=== PATIENT | female | born 1930 | race Caucasian/White ===

== ENCOUNTER 2018-11-02 19:34 | Emergency (ER) | payer MEDICARE, OTHER ==
[2018-11-02] MEDS ORDERED: Adacel (T-DAP) 0.5 ML SYRINGE ONE (20:04)
== END 2018-11-02 20:21 | disposition home or self-care (01) ==
LOC: ERS 19:34
DX: S81.811A Laceration without foreign body, right lower leg, initial encounter (principal); W22.8XXA Striking against or struck by other objects, initial encounter; Y92.002 Bathroom of unspecified non-institutional (private) residence as the place of occurrence of the external cause
CPT/HCPCS: 12005; 90471; 90715

== ENCOUNTER 2019-02-07 07:12 | Observation (INO) | payer MEDICARE, OTHER ==
[2019-02-07] MEDS ORDERED: Ondansetron PF 4 MG/2 ML Vial ONE (07:17)
[2019-02-07 07:53] LABS: #Basophils 0.1 thou/uL (0.0-0.2); #Eosinphils 0.2 thou/uL (0.0-0.7); #Monocytes 0.4 thou/uL (0.11-0.59); #Neutrophils 2.2 thou/uL (1.40-6.50); %Eosinophils 3.2 % (0.0-10.0); %Lymphocytes 41.3 % (21.0-51.0); %Monocytes 8.3 % (0.0-10.0); %Neutrophils 46.1 % (42.0-75.0); Hemoglobin 13.1 g/dL (12.0-16.0); Mean Corpuscular HGB CONC 33.2 g/dL (32.0-36.0); Mean Corpuscular Hemoglobin 32.4 pg (27.0-31.0); Mean Corpuscular Volume 97.8 fL (78.0-98.0); Mean Platelet Volume 7.7 fL (7.4-10.4); Platelet Count 225 thou/uL (130-400); RBC Distribution Width 11.1 % (11.5-14.5); Red Blood Cell (RBC) Count 4.03 mill/uL (4.20-5.40); White Blood Cell (WBC) Count 4.8 thou/uL (4.8-10.8)
--- NOTE | 2019-02-07 08:02 | CT ---
FCT brain noncontrast: HISTORY: 88-year-old female with altered mental status FINDINGS: There is no evidence of acute intra-axial or extra-axial hemorrhage. No mass effect, midline shift, o r extra-axial fluid collection. No evidence of obstructive hydrocephalus. Calvarium is intact. Age-ap propriate involutional changes and mild chronic ischemic white matter changes of the brain. IMPRESSION: No acute intracranial findings.
[2019-02-07] MEDS ORDERED: Nitroglycerin 2% Ointment 1 INCH/1 GM Packet ONE (08:16)
[2019-02-07 08:17] LABS: ALT (SGPT) Less than 7 U/L (8-55); AST (SGOT) 14 U/L (5-34); Albumin 4.2 g/dL (3.4-4.8); Alkaline Phosphatase 98 U/L (40-150); Anion Gap 13 mmol/L (10-20); BUN (Urea Nitrogen) 23 mg/dL (9.8-20.1); Bilirubin, Total 0.4 mg/dL (0.2-1.2); CK (CPK) 55 U/L (29-168); Calc. Creatinine Clearance 0 mL/min (70-130); Calcium 9.8 mg/dL (7.8-10.44); Carbon Dioxide 26 mmol/L (23-31); Chloride 101 mmol/L (98-107); Estimated GFR-MDRD 44; Globulin 2.6 g/dL (2.4-3.5); Glucose 88 mg/dL (83-110); Potassium 3.7 mmol/L (3.5-5.1); Protein, Total 6.8 g/dL (6.0-8.3); Sodium 136 mmol/L (136-145)
[2019-02-07 08:25] LABS: Bilirubin Negative (Negative); Blood, Urine Negative (Negative); Clarity CLEAR (Clear); Glucose, Urine (Dipstick) Negative (Negative); Leukocyte Negative (Negative); Nitrite Negative (Negative); Protein, Urine (Dipstick) Negative (Neg-Trace); Specific Gravity, Urine 1.006 (1.002-1.036); Urobilinogen 0.2 mg/dL (0.2-1.0)
[2019-02-07 11:07] LABS: Troponin I 0.014 ng/mL (< 0.028)
[2019-02-07] MEDS ORDERED: Acetaminophen 500 MG TAB ONE (11:53)
[2019-02-07] MEDS ORDERED: Diazepam 5 MG TAB PO PRN (12:14)
[2019-02-07] MEDS ORDERED: tiZANidine HCl 4 MG TAB PO PRN (12:14)
--- NOTE | 2019-02-07 12:57 | CT ---
CT LEFT HIP WITHOUT CONTRAST: HISTORY: Hip pain after a fall. COMPARISON: None. FINDINGS: There is moderate diverticular disease of the sigmoid colon. No free fluid in the pelvis. No pelvic sidewall hematoma. Phleboliths in the pelvis. Visualized portions of the SI joints unremarkable. Visualized portion of the left ilium and ischium are intact. Moderate enthesopathic changes of the left hamstring tendons . Mild capsular calcifications of the left hip. There is advanced degenerative narrowing with subco rtical cyst formation. There are osteophyte formations of the left femoral head/neck junction. No intratrochanteric fracture. No femoral neck or head fracture. No obturator ring fracture. There is no fascial delamination. IMPRESSION: Advanced degenerative changes with near-complete cartilage loss anterior superior acetabulum and femo ral head with subsequent capsular calcifications and osteophyte formation. No acute fracture. POS: C
[2019-02-07 14:19] LABS: Troponin I 0.014 ng/mL (< 0.028)
--- NOTE | 2019-02-07 16:34 | MRI ---
[facility] brain noncontrast: 02/07/2019 HISTORY: 88-year-old female with dizziness, status post syncope and fall resulting in head trauma. FINDINGS: No acute intra-axial or extra-axial hemorrhage. No mass effect, midline shift, restricted diffusion, extra-axial fluid collection, or obstructive hydrocephalus. Mild chronic ischemic white matter change s of the richards radiata and centrum semiovale. Diffuse age-appropriate brain parenchymal volume loss. IMPRESSION: 1. Involutional changes and chronic ischemic white matter changes, typical for age. 2. Otherwise negative.
--- NOTE | 2019-02-07 18:13 | HP ---
CHIEF COMPLAINT: Dizziness, fall. HISTORY OF PRESENT ILLNESS: The patient is an 88-year-old female with past medical history of disk disease and hypertension, who presents to the hospital after a fall and dizziness. The patient stated that she woke up twice last night to go adjust her thermostat, however, when she woke up, the second time she got out very slowly, felt the room spin and fell hitting her nose. The patient initially stated that she did not syncopized, however, could not then recall what really happened after things happened so quickly. The patient stated that she normally has issues with her eyes and she has been seeing Ophthalmology, sometimes she sees double vision. Also, she has been feeling fullness of her right ear on multiple antibiotics which has not really helped her symptoms. The patient stated that for the past maybe a month she was put on antihypertensives, which made her very dizzy, at this time she stopped taking her antihypertensives. She did notify her PCP about this. The patient does keep a record of her blood pressure and her blood pressure according to her has been very stable. However, the son also stated that she has had multiple episodes where she will get dizzy and fall. However, this episode the patient described very clearly that the room was spinning and felt that the ground was pulled underneath her feet and at that time she fell and hit her nose. PAST MEDICAL HISTORY: She has a history of disk disease and hypertension. PAST SURGICAL HISTORY: She has had bilateral knee replacement. She has back surgery. She has had left arm hardware. She has had appendectomy, hysterectomy, and cholecystectomy. ALLERGIES: SHE HAS NO KNOWN DRUG ALLERGIES. MEDICATION: Her medication list was taken from the chart, son was asked to bring the current medication list. She is on a diuretic, amlodipine, diazepam. She is on hydrocodone and tizanidine. SOCIAL HISTORY: She does drink about 2 to 5 glasses of wine on a daily basis. She is a former smoker, currently does not smoke. She is a full code. FAMILY HISTORY: Mother had Alzheimer's. Father had no significant medical history. REVIEW OF SYSTEMS: All negative except for the ones mentioned above in the HPI. PHYSICAL EXAMINATION: VITAL SIGNS: Her temperature was 98.8, initially when she came into the hospital she was very hypertensive. Her blood pressure was 210/87. She was 100% on room air, respirations were 20. GENERAL: She is awake,alert, and oriented x3, does not appear in any distress. HEENT: Normocephalic and atraumatic. lymphadenopathy noted. Pupils are equal and reactive to light. CV: S1 and S2 present. No murmurs, rubs, or gallops. LUNGS: Clear to auscultation. No rhonchi or wheezes noted. ABDOMEN: Soft and nontender. Bowel sounds are present x2. EXTREMITIES: She does have pain on her left hip upon palpation, however, no focal deficits noted. Her cerebellum test was intact. [id number] was intact. Her [id number] was little altered given her double vision. SKIN: She does have some minor cuts and bruises around. LABORATORY RESULTS: As of the following; WBCs of 4.8, hemoglobin of 13.1, hematocrit of 39.4, platelets of 225. Chemistry; sodium of 132, potassium of 3.7, BUN of 22, creatinine of 1.17. Troponin x2 were negative. LFTs were normal. Her urine was clear. She did have a brain CT, which did not show any acute abnormalities. ASSESSMENT AND PLAN: The patient is a very pleasant 88-year-old female, who presents to the hospital for dizziness and fall. 1. Dizziness, most likely secondary to vertigo. However, given the patient's age and some risk factors, and she was found to have hypertension when she came into the hospital. I will go ahead and do a MRI brain to rule out any cerebellum stroke. I will also do an echocardiogram since she is unsure if she really passed out. It is also negative, she should be able to be discharged home once the tests are done. 2. History of hypertension. The patient states at home her blood pressure is well controlled. I have asked her son to bring a list of her home medications. We will continue to monitor and we will continue her home medications. However, in the ER she was found to be systolics in the 210s. She may need some adjustment with her blood pressure medications. 3. Left hip pain. The patient states that she fell in August of 2018, had x-rays done which were okay. However, the patient continues to have pain on her left hip area. I will go ahead and order a CT noncontrast of her left hip to rule out any fractures. However, the patient states that she is able to walk on it, however, her pain never got improved and she has also been getting some physical therapy. 4. Deep venous prophylaxis. We will put the patient on SCDs or Lovenox. Job ID: [id number]
[2019-02-07] MEDS: HYDROcodone/Acetaminophen 10/325 mg Tablet PO PRN (20:52)
[2019-02-07 23:18] VITALS: BMI 25.6
[2019-02-08] MEDS: HYDROcodone/Acetaminophen 10/325 mg Tablet PO PRN (03:22)
[2019-02-08] MEDS: hydrALAZINE 20 MG/ML VIAL SLOW IVP PRN (03:57)
[2019-02-08 05:46] LABS: #Eosinphils 0.1 thou/uL (0.0-0.7); #Lymphocytes 1.3 thou/uL (1.20-3.40); #Monocytes 0.5 thou/uL (0.11-0.59); %Basophils 0.8 % (0.0-1.0); %Eosinophils 1.8 % (0.0-10.0); %Lymphocytes 25.9 % (21.0-51.0); %Monocytes 10.8 % (0.0-10.0); %Neutrophils 60.6 % (42.0-75.0); Mean Corpuscular Hemoglobin 32.7 pg (27.0-31.0); Mean Corpuscular Volume 99.1 fL (78.0-98.0); Mean Platelet Volume 8.2 fL (7.4-10.4); Platelet Count 212 thou/uL (130-400); RBC Distribution Width 11.1 % (11.5-14.5); Red Blood Cell (RBC) Count 3.68 mill/uL (4.20-5.40)
[2019-02-08 06:08] LABS: Anion Gap 12 mmol/L (10-20); BUN (Urea Nitrogen) 20 mg/dL (9.8-20.1); Calc. Creatinine Clearance 38 mL/min (70-130); Calcium 9.5 mg/dL (7.8-10.44); Carbon Dioxide 27 mmol/L (23-31); Chloride 102 mmol/L (98-107); Estimated GFR-MDRD 46; Glucose 95 mg/dL (83-110); Potassium 3.6 mmol/L (3.5-5.1); Sodium 137 mmol/L (136-145)
[2019-02-08] MEDS ORDERED: Metoprolol Tartrate 25 MG TAB PO SCH (09:00)
[2019-02-08] MEDS ORDERED: Prevnar 13-Val Conj/PF 0.5 ML SYRINGE IM ONE (09:00)
[2019-02-08] MEDS: Lisinopril 5 MG TAB PO SCH (09:09)
[2019-02-08] MEDS: Amlodipine 5 MG TAB PO SCH (09:09)
[2019-02-08] MEDS: Enoxaparin Sodium 40 MG/0.4 ML SYRINGE SC SCH (09:10)
[2019-02-08] MEDS: Diphenoxylate HCl/Atropine Tablet PO SCH (09:10)
[2019-02-08] MEDS ORDERED: Meclizine HCl 12.5 MG TAB PO SCH (11:45)
--- NOTE | 2019-02-08 13:29 | PDOC.PN ---
- Subjective Encounter Start Date: 02/08/19 Encounter Start Time: 07:40 Pt seen for followup re: dizziness. feels slightly better. - Objective Resuscitation Status - Order Detail: 02/07/19 10:16 Resuscitation Status Routine Resuscitation Status: FULL: Full Resuscitation MAR Reviewed: Yes Vital Signs & Weight: Vital Signs (12 hours) Temp Pulse Pulse Pulse Resp BP BP 02/08/19 11:30 97.5 F L 53 L 18 02/08/19 10:08 63 56 L 128/58 L 02/08/19 09:09 68 02/08/19 07:45 97.8 F 68 18 02/08/19 05:30 63 02/08/19 04:00 97.6 F 64 18 02/08/19 03:57 63 181/76 H BP BP BP BP BP Pulse Ox 02/08/19 11:30 151/68 H 98 02/08/19 10:08 138/64 02/08/19 09:09 02/08/19 07:45 138/61 142/64 H 117/55 L 96 02/08/19 05:30 125/60 02/08/19 04:00 184/96 H 97 02/08/19 03:57 Weight Weight 146 lb 12.8 oz I&O: 02/07/19 02/08/19 02/09/19 06:59 06:59 06:59 Intake Total 400 Output Total 1200 Balance -800 Result Diagrams: 02/08/19 04:59 02/08/19 04:58 EKG Reviewed by me: Yes (Tele: NSR) Phys Exam - Physical Examination Constitutional: NAD HEENT: moist MMs Neck: supple Respiratory: clear to auscultation bilateral Cardiovascular: RRR Gastrointestinal: soft Neurological: moves all 4 limbs Psychiatric: normal affect Dx/Plan (1) Dizziness Code(s): R42 - DIZZINESS AND GIDDINESS Status: Acute Comment: MRI nil acute. Trial meclizine (2) HTN (hypertension) Code(s): I10 - ESSENTIAL (PRIMARY) HYPERTENSION Status: Chronic Comment: controlled. (3) Left hip pain Code(s): M25.552 - PAIN IN LEFT HIP Status: Chronic Comment: Improved, no fracture on CT - Plan * . Review of Systems - Review of Systems Constitutional: negative: fever, chills, sweats, weakness, malaise Cardiovascular: negative: chest pain, palpitations, orthopnea, paroxysmal nocturnal dyspnea, edema, light headedness Neurological: Other (dizziness) - Medications/Allergies Allergies/Adverse Reactions: Allergies Allergy/AdvReac Type Severity Reaction Status Date / Time No Known Allergies Allergy Verified 05/01/14 10:34 Medications: Current Medications Acetaminophen (Tylenol) 650 mg PO Q4H PRN PRN Reason: Headache/Fever/Mild Pain (1-3) Hydrocodone Bitart/Acetaminophen ([place] 10/325) 1 tab PO Q6HR PRN PRN Reason: Moderate Pain (4-6) Last Admin: 02/08/19 03:22 Dose: 1 tab Amlodipine Besylate (Norvasc) 5 mg PO DAILY [facility] Last Admin: 02/08/19 09:09 Dose: 5 mg Diazepam (Valium) 5 mg PO Q8HR PRN PRN Reason: Anxiety/Restlessness/Sleep Diphenoxylate HCl/Atropine (Lomotil) 1 tab PO DAILY [facility] Last Admin: 02/08/19 09:10 Dose: 1 tab Enoxaparin Sodium (Lovenox) 40 mg SC 09 [facility] Last Admin: 02/08/19 09:10 Dose: 40 mg Hydralazine HCl (Apresoline) 10 mg SLOW IVP Q4H PRN PRN Reason: sbp>160 Last Admin: 02/08/19 03:57 Dose: 10 mg Lisinopril (Zestril) 5 mg PO DAILY [facility] Last Admin: 02/08/19 09:09 Dose: 5 mg Meclizine HCl (Antivert) 12.5 mg PO TID [facility] Meclizine HCl (Antivert) 12.5 mg PO NOW [facility] Stop: 02/08/19 13:45 Last Admin: 02/08/19 12:26 Dose: 12.5 mg Metoprolol Tartrate (Lopressor) 25 mg PO BID [facility] Last Admin: 02/08/19 09:09 Dose: 25 mg Tizanidine HCl (Zanaflex) 2 mg PO TID PRN PRN Reason: Muscle Spasm
[2019-02-08] MEDS: Meclizine HCl 12.5 MG TAB PO SCH ×2 (16:12→20:31)
[2019-02-08] MEDS: Acetaminophen 325 MG TAB PO PRN (20:32)
[2019-02-09] MEDS: HYDROcodone/Acetaminophen 10/325 mg Tablet PO PRN ×2 (01:04→09:27)
[2019-02-09] MEDS ORDERED: Metoprolol Tartrate 25 MG TAB PO SCH (09:00)
[2019-02-09] MEDS: Diphenoxylate HCl/Atropine Tablet PO SCH (09:22)
[2019-02-09] MEDS: Amlodipine 5 MG TAB PO SCH (09:23)
[2019-02-09] MEDS: Lisinopril 5 MG TAB PO SCH (09:23)
[2019-02-09] MEDS: Meclizine HCl 12.5 MG TAB PO SCH ×3 (09:23→21:22)
[2019-02-09] MEDS: Enoxaparin Sodium 40 MG/0.4 ML SYRINGE SC SCH (14:20)
--- NOTE | 2019-02-09 16:01 | PDOC.PN ---
- Subjective Encounter Start Date: 02/09/19 Encounter Start Time: 08:00 Pt seen for followup re: dizziness. Reports dizziness is better. Ambulating. - Objective Resuscitation Status - Order Detail: 02/07/19 10:16 Resuscitation Status Routine Resuscitation Status: FULL: Full Resuscitation MAR Reviewed: Yes Vital Signs & Weight: Vital Signs (12 hours) Temp Pulse Resp BP BP BP BP 02/09/19 15:32 98.1 F 58 L 18 141/67 H 02/09/19 12:57 98.1 F 60 18 145/66 H 02/09/19 09:23 62 02/09/19 08:10 97.7 F 54 L 18 136/65 135/62 131/60 02/09/19 04:37 97.9 F 55 L 18 159/70 H Pulse Ox 02/09/19 15:32 95 02/09/19 12:57 98 02/09/19 09:23 02/09/19 08:10 98 02/09/19 04:37 98 Weight Weight 155 lb 3.2 oz I&O: 02/08/19 02/09/19 02/10/19 06:59 06:59 06:59 Intake Total 400 1290 Output Total 1200 1650 Balance -800 -360 Result Diagrams: 02/08/19 04:59 02/08/19 04:58 Additional Labs: Accuchecks 02/08/19 23:54 POC Glucose 92 EKG Reviewed by me: Yes (Tele: NSR) Phys Exam - Physical Examination Constitutional: NAD HEENT: moist MMs Neck: supple Respiratory: clear to auscultation bilateral Cardiovascular: RRR Gastrointestinal: soft Neurological: moves all 4 limbs Psychiatric: normal affect Dx/Plan (1) Dizziness Code(s): R42 - DIZZINESS AND GIDDINESS Status: Acute Comment: Improved with meclizine (2) HTN (hypertension) Code(s): I10 - ESSENTIAL (PRIMARY) HYPERTENSION Status: Chronic Comment: controlled. (3) Left hip pain Code(s): M25.552 - PAIN IN LEFT HIP Status: Chronic Comment: Improved (4) Bradycardia Code(s): R00.1 - BRADYCARDIA, UNSPECIFIED Status: Resolved Comment: Pt had bradycardia last night, cardiology service consulted - Plan * . Review of Systems - Review of Systems Cardiovascular: negative: chest pain, palpitations, orthopnea, paroxysmal nocturnal dyspnea, edema, light headedness Gastrointestinal: negative: Nausea, Vomiting, Abdominal Pain, Diarrhea, Constipation, Melena, Hematochezia - Medications/Allergies Allergies/Adverse Reactions: Allergies Allergy/AdvReac Type Severity Reaction Status Date / Time No Known Allergies Allergy Verified 05/01/14 10:34 Medications: Current Medications Acetaminophen (Tylenol) 650 mg PO Q4H PRN PRN Reason: Headache/Fever/Mild Pain (1-3) Last Admin: 02/08/19 20:32 Dose: 650 mg Hydrocodone Bitart/Acetaminophen ([place] 10/325) 1 tab PO Q6HR PRN PRN Reason: Moderate Pain (4-6) Last Admin: 02/09/19 09:27 Dose: 1 tab Amlodipine Besylate (Norvasc) 5 mg PO DAILY [facility] Last Admin: 02/09/19 09:23 Dose: 5 mg Diazepam (Valium) 5 mg PO Q8HR PRN PRN Reason: Anxiety/Restlessness/Sleep Last Admin: 02/08/19 20:31 Dose: 5 mg Diphenoxylate HCl/Atropine (Lomotil) 1 tab PO DAILY [facility] Last Admin: 02/09/19 09:22 Dose: 1 tab Enoxaparin Sodium (Lovenox) 40 mg SC 0900 [facility] Last Admin: 02/09/19 14:20 Dose: 40 mg Hydralazine HCl (Apresoline) 10 mg SLOW IVP Q4H PRN PRN Reason: sbp>160 Last Admin: 02/08/19 03:57 Dose: 10 mg Lisinopril (Zestril) 5 mg PO DAILY [facility] Last Admin: 02/09/19 09:23 Dose: 5 mg Meclizine HCl (Antivert) 12.5 mg PO TID [facility] Last Admin: 02/09/19 14:20 Dose: 12.5 mg Tizanidine HCl (Zanaflex) 2 mg PO TID PRN PRN Reason: Muscle Spasm
--- NOTE | 2019-02-09 16:16 | CON ---
DATE OF CONSULTATION: 02/09/2019 REASON FOR CONSULTATION: Dizziness, lightheadedness, and bradycardia. PRIMARY GRINDER HARDBOARD: None. HISTORY OF PRESENT ILLNESS: Ms. Nguyen is a very pleasant 88-year-old woman with no significant past cardiac history. She recently presented with dizziness, lightheadedness, and syncope. The events around the episode were difficult to ascertain. She states she fell and hit her nose. No significant trauma present. She presented to the emergency room with the above. After reviewing her gambling monitor strips, her heart rate has been in the low 50s to 60s. She has not been on beta era therapy or calcium channel blockade in the past. She has been on p.r.n. hydrocodone. PAST MEDICAL HISTORY: Hypertension, knee surgery, back surgery, appendectomy, hysterectomy, and cholecystectomy. ALLERGIES: NONE. SOCIAL HISTORY: Positive for alcohol. No tobacco use. FAMILY HISTORY: Son recently had a bypass surgery. HOME MEDICATIONS: Imodium, Lomotil, hydrocodone, Valium, and chlorthalidone. REVIEW OF SYSTEMS: A 10-point review of systems is reviewed as above, otherwise negative. PHYSICAL EXAMINATION: GENERAL: Patient is a pleasant female, who is in no acute distress. The patient appears their stated age. VITAL SIGNS: Blood pressure 141/67, pulse 58, temperature 98.1. NEUROLOGIC: The patient is alert and oriented x3 with no focal neurologic deficits. HEENT: Sclerae without icterus. Mouth has moist mucous membranes with normal pallor. NECK: No JVD. Carotid upstroke brisk. No bruits bilaterally. LUNGS: Clear to auscultation with unlabored respirations. BACK: No scoliosis or kyphosis. CARDIAC: Regular rate and rhythm with normal S1 and S2. No S3 or S4 noted. No significant rubs, murmurs, thrills, or gallops noted throughout the precordium. PMI is not displaced. There is no parasternal heave. ABDOMEN: Soft, nontender, nondistended. No peritoneal signs present. No hepatosplenomegaly. No abnormal striae. EXTREMITIES: 2+ femoral and 2+ dorsalis pedis pulses. No cyanosis, clubbing, or edema. SKIN: No gross abnormalities. IMAGING: EKG, sinus bradycardia. PERTINENT LABORATORY DATA: White blood cell count 5.0, hemoglobin 12.0, hematocrit 36, and platelet count of 212. IMPRESSION: 1. Dizziness, lightheadedness. 2. Syncope. RECOMMENDATIONS: I have not seen a significant rhythm issue noted on telemetry monitoring. Her symptoms could have certainly been multifactorial. She is currently on Valium in addition to hydrocodone. She is also on chlorthalidone. This may have been due to medications versus volume contraction. This may have also been due to significant dysrhythmia, which has not been seen on the monitor. At this point, I recommend observation overnight. Her LVEF is normal on echo. I would recommend a 3-week event recorder to assess for any significant issues while at home. Please note son did state he had a similar episode one year ago. He had no symptoms with a normal EKG. His report programmer, Dr. 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 At this point, I did let the son know that despite his experience, I did not know the events surrounding his presentation, but would not recommend proceeding with angiography based on her symptoms. She has no symptoms suggesting angina, and this is likely dysrhythmia potentially. Job ID: [id number]
[2019-02-09] MEDS ORDERED: ALPRAZolam 0.25 MG TAB PO PRN (21:23)
[2019-02-09] MEDS: Acetaminophen 325 MG TAB PO PRN (23:45)
[2019-02-10] MEDS: hydrALAZINE 20 MG/ML VIAL SLOW IVP PRN (03:42)
[2019-02-10] MEDS: HYDROcodone/Acetaminophen 10/325 mg Tablet PO PRN (03:56)
--- NOTE | 2019-02-10 07:06 | PDOC.CTH ---
Cardiology Progress Note - Subjective No episodes of symptomatic bradycardia. HR low 40's while asleep - Objective Vital Signs Temp Pulse Resp BP BP Pulse Ox 02/10/19 04:45 66 19 137/64 02/10/19 04:00 98.3 F 62 17 178/73 H 97 02/10/19 03:42 64 178/73 H 02/10/19 00:35 63 17 138/74 96 02/09/19 20:05 98.2 F 65 20 144/87 H 99 Weight 149 lb 8 oz 02/09/19 02/10/19 02/11/19 06:59 06:59 06:59 Intake Total 1290 1500 Output Total 1650 550 Balance -360 950 - Physical Examination General/Neuro: alert & oriented x3, NAD Neck: carotid US brisk, no JVD present Lungs: unlabored respirations Heart: PMI normal, RRR Abdomen: NT/ND, soft Extremities: + femoral B - Telemetry Telemetry Rhythm: SR - Labs Result Diagrams: 02/08/19 04:59 02/08/19 04:58 Troponin/CKMB Troponin I 0.014 ng/mL (< 0.028) 02/07/19 13:45 - Assessment/Plan Dizziness Bradycardia No changes noted overnight Plan is a EVR and outpatinet fu I will arrange for the EVR as outpatient No other recommendations EF normal on echo without valve dysfunction
[2019-02-10] MEDS: Lisinopril 5 MG TAB PO SCH (09:08)
[2019-02-10] MEDS: Amlodipine 5 MG TAB PO SCH (09:08)
[2019-02-10] MEDS: Meclizine HCl 12.5 MG TAB PO SCH ×2 (09:08→14:06)
[2019-02-10] MEDS: Enoxaparin Sodium 40 MG/0.4 ML SYRINGE SC SCH (09:08)
[2019-02-10] MEDS: Diphenoxylate HCl/Atropine Tablet PO SCH (09:08)
--- NOTE | 2019-02-10 12:50 | DIS ---
DATE OF ADMISSION: 02/07/2019 DATE OF DISCHARGE: 02/10/2019 DISCHARGE DISPOSITION: Home with home health care. Follow up with primary care physician, Dr. Aldana next week. Follow up with ENT, Dr. Randhawa on 12 February 2019 at 2:15 p.m. Repeat basic metabolic profile after 2 weeks is recommended. Primary care physician advised to follow. The patient was seen and examined on the day of discharge. Denies any new complaints. No chest pain, shortness of breath, palpitations reported. BRIEF HOSPITAL COURSE: The patient is an 88-year-old female with hypertension and chronic vertigo, presented to the hospital after an episode of dizziness with fall. Please refer to the history and physical for further details. The patient was admitted to the hospital on the February 2019 with a diagnosis of dizziness/fall. She underwent an MRI of the brain which was negative for acute CVA. Echocardiogram was obtained that showed ejection fraction 55% to 60% with diastolic dysfunction, mild mitral regurgitation, and mild tricuspid regurgitation. While on the surveillance system monitor, the patient developed few episodes of sinus bradycardia. An event monitor has been arranged. She has been cleared by consultants for discharge. DIAGNOSTIC TESTS: Troponin negative. Creatinine on admission 1.17 with BUN 23, at discharge, creatinine 1.13 with BUN 20. Hemoglobin 12.0 with hematocrit 36.4. FINAL DIAGNOSES: 1. Dizziness probably secondary to peripheral vertigo. The patient will follow up with ENT later this week. 2. Hypertension. The patient has been started on amlodipine and lisinopril. Chlorthalidone has been discontinued. 3. Chronic left hip pain. The patient underwent CT scan of the left hip that showed advanced degenerative changes. 4. Chronic peripheral vertigo. 5. Dehydration on admission. 6. Chronic kidney disease, stage 3. 7. Hypertension. PLAN: Plan of care was discussed with the patient in detail. She stated understanding. Fall precaution was emphasized. Job ID: [id number]
[2019-02-10 17:03] VITALS: BP 168/74; TEMP 97.8
== END 2019-02-10 17:50 | disposition home or self-care (01) ==
LOC: ERS 07:12 → ERHOLD 08:30 → 2NO 18:16
PROVIDERS: ADMIT Internal Medicine; ATTEND Internal Medicine
DX: H81.399 Other peripheral vertigo, unspecified ear (principal); M25.552 Pain in left hip; E86.0 Dehydration; I12.9 Hypertensive chronic kidney disease with stage 1 through stage 4 chronic kidney disease, or unspecified chronic kidney disease; N18.3 Chronic kidney disease, stage 3 (moderate); Z96.653 Presence of artificial knee joint, bilateral; Z90.49 Acquired absence of other specified parts of digestive tract; Z90.710 Acquired absence of both cervix and uterus; Z87.891 Personal history of nicotine dependence; Z79.899 Other long term (current) drug therapy
CPT/HCPCS: 51701; 70450; 70551; 73700; 80048; 80053; 81003; 82550; 82962; 84484 ×2; 85025 ×2; 93005; 93306; 96372 ×3; 96374; 96375; 96376; 97110; 97116; 97139; 97530; 99291; G0378 ×3; 36415; 36416; A4353; J0360; J1650; J2405; J8597

== ENCOUNTER 2020-06-03 13:14 | Emergency (ER) | payer MEDICARE, OTHER ==
[2020-06-04 12:10] LABS: SARS-CoV-2 MS2 Positive; SARS-CoV-2 N Gene Negative; SARS-CoV-2 S Gene Negative; SARS-CoV-2 by NAA Not Detected (NotDetected); SARS-CoV-2 orf1ab Negative
== END 2020-06-03 13:39 | disposition home or self-care (01) ==
LOC: ERS 13:14
DX: Z20.828 Contact with and (suspected) exposure to other viral communicable diseases (principal)
CPT/HCPCS: 87635; 99283; U0003

== ENCOUNTER 2020-08-12 14:34 | Outpatient (CLI) | payer MEDICARE, OTHER ==
--- NOTE | 2020-08-12 16:35 | RAD ---
LEFT FOOT: 08/12/20 Three views. HISTORY: Foot pain. Small spur from the plantar calcaneus. Tarsals otherwise unremarkable. The metatarsals and phalanges appear intact. MTP joints unremarkable with minimal degenerative change at the first MTP joint. IMPRESSION: No acute abnormality. POS: AGW
== END 2020-08-12 14:35 | disposition home or self-care (01) ==
LOC: BICRAD 14:34
PROVIDERS: ATTEND Family Medicine
DX: M79.672 Pain in left foot (principal)

== ENCOUNTER 2020-11-06 08:52 | Inpatient (IN) | payer MEDICARE, OTHER ==
[2020-11-06 09:42] LABS: #Lymphocytes 1.2 thou/uL (1.20-3.40); #Monocytes 0.8 thou/uL (0.11-0.59); #Neutrophils 5.5 thou/uL (1.40-6.50); %Basophils 0.6 % (0.0-1.0); %Eosinophils 0.6 % (0.0-10.0); %Lymphocytes 15.5 % (21.0-51.0); %Monocytes 10.9 % (0.0-10.0); %Neutrophils 72.5 % (42.0-75.0); Hemoglobin 13.1 g/dL (12.0-16.0); Mean Corpuscular Hemoglobin 31.3 pg (27.0-31.0); Mean Platelet Volume 8.2 fL (7.4-10.4); Platelet Count 263 thou/uL (130-400); RBC Distribution Width 11.8 % (11.5-14.5); Red Blood Cell (RBC) Count 4.18 mill/uL (4.20-5.40); White Blood Cell (WBC) Count 7.6 thou/uL (4.8-10.8)
[2020-11-06 09:54] LABS: INR-International Normal Ratio 0.9; PTT 27.5 sec (22.9-36.1)
[2020-11-06 10:02] LABS: ALT (SGPT) 11 U/L (8-55); AST (SGOT) 18 U/L (5-34); Albumin 4.3 g/dL (3.4-4.8); Alkaline Phosphatase 82 U/L (40-110); Anion Gap 17 mmol/L (10-20); BUN (Urea Nitrogen) 27 mg/dL (9.8-20.1); Bilirubin, Total 0.6 mg/dL (0.2-1.2); Calc. Creatinine Clearance 0 mL/min (70-130); Calcium 9.7 mg/dL (7.8-10.44); Carbon Dioxide 26 mmol/L (23-31); Chloride 102 mmol/L (98-107); Globulin 3.3 g/dL (2.4-3.5); Glucose 115 mg/dL (83-110); Magnesium 1.7 mg/dL (1.6-2.6); Potassium 4.4 mmol/L (3.5-5.1); Protein, Total 7.6 g/dL (6.0-8.3); Sodium 141 mmol/L (136-145)
[2020-11-06 10:31] LABS: CKMB 2.8 ng/mL (0-6.6)
--- NOTE | 2020-11-06 10:32 | RAD ---
EXAM: Chest one view: HISTORY: Throat pain cough and nasal drainage COMPARISON: 08/04/2018 FINDINGS: Heart size: Within normal limits. Lungs: Clear of acute process. No evidence for confluent lobar pneumonia, significant pleural effusion, acute edema, or pneumothorax , or other significant acute process. IMPRESSION: No significant acute intrathoracic disease. Atherosclerosis of the aorta with ectasia. Stable exam.
[2020-11-06] MEDS ORDERED: Aspirin Chewable 81 MG TAB ONE (10:37)
[2020-11-06] MEDS ORDERED: Oxymetazoline HCl 0.05% (30 ML BOT) ONE (10:37)
[2020-11-06 13:02] LABS: Bilirubin Negative (Negative); Blood, Urine Negative (Negative); Clarity Clear (Clear); Glucose, Urine (Dipstick) Normal (Negative); Ketone, Urine Negative (Negative); Leukocyte Negative Leu/uL (Negative); Nitrite Negative (Negative); Protein, Urine (Dipstick) Negative (Neg-Trace); Specific Gravity, Urine 1.007 (1.002-1.036); Urobilinogen Normal mg/dL (Less than 2); pH, Urine 6.5 (5.0-9.0)
[2020-11-06] MEDS ORDERED: Acetaminophen 650 MG Suppository PR PRN (13:11)
[2020-11-06 14:51] LABS: SARS-CoV-2 NAA Rapid Test Not Detected (NotDetected)
[2020-11-06 15:01] LABS: CRP (Inflammatory) 0.55 mg/dL (= or < 0.5)
--- NOTE | 2020-11-06 15:10 | ULT ---
Venous duplex sonogram bilateral lower extremity HISTORY: Bilateral leg pain and edema. FINDINGS: Each common femoral vein and greater saphenous junction were evaluated along with each femo ral, deep femoral, popliteal, and posterior tibial vein. There is good color and spectral Doppler flow, compression, and augmentation. IMPRESSION : Normal exam.
[2020-11-06 15:24] LABS: CKMB 2.6 ng/mL (0-6.6)
--- NOTE | 2020-11-06 17:01 | HP ---
TIME OF ASSESSMENT: 12:30. PRIMARY CARE PHYSICIAN: Dr. Aldana. CHIEF COMPLAINT: Rhinorrhea. HISTORY OF PRESENT ILLNESS: Ms. Nguyen is a pleasant 89-year-old woman, who drove herself to the emergency department today due to persistent rhinorrhea since yesterday and complaints of sore throat. The patient states that she noted a recurrent pus pocket on the right side of the posterior pharynx, which she states she has developed on occasion for years and usually own. The patient denies having any recent fevers, chills, or sweats and has not had any difficulty with her swallowing. She states she has otherwise felt well. While in the emergency department, she was noted to be tachycardic and an EKG was done demonstrating that the patient was in atrial flutter with a heart rate of 146. She had an IV line placed and shortly after that, her heart rate normalized and a repeat EKG done demonstrated that she was in normal sinus rhythm. The patient denies experiencing any chest pain, palpitations, or shortness of breath. She denies having any history of dysrhythmias. However, per ED reports, she was placed on a Holter monitor in February 2020 for 3 weeks at which time findings are unremarkable. At this present time, she is without any complaints except for some discomfort in her right upper extremity from the blood pressure cuff and states she does not wish to have her BP checked via the machine and prefers manual blood pressures due to the discomfort from the squeezing of the machine. Of note, the patient also did complain of nasal congestion that has improved since Afrin was given in the ED. The patient denies having any recent nausea, vomiting, or diarrhea. States that her stools are well controlled with medications provided by her primary care physician. Previously had issues with diarrhea, due to "microscopic colitis." She had a bowel movement this morning and states was normal. Denies any blood per rectum or melena. No headaches or dizziness. No urinary symptoms. All other review of systems apart from what is mentioned above in HPI are negative. ED COURSE: In addition to what is mentioned above in HPI. While in the emergency department, she had laboratory studies done that demonstrated white blood cell count of 7.6, hemoglobin 13.1, hematocrit 42.2, platelets 263, neutrophils 72.5%. Sodium 141, potassium 4.4, BUN 27, creatinine 1.59, GFR 31, lactic acid 2.7, glucose was 115, magnesium 1.7, calcium 9.7, LFTs normal. Initial troponin indeterminate at 0.077 and BNP was 580.9. TSH normal. Urinalysis was done and unremarkable. A chest x-ray was obtained demonstrating no significant acute intrathoracic disease. Atherosclerosis of the aorta with ectasia was present. Otherwise appeared stable. She received 324 mg of aspirin. Diltiazem was ordered, but not given as patient converted to normal sinus rhythm. She received Afrin and 1 L of normal saline. PAST MEDICAL HISTORY: 1. History of "microscopic colitis". 2. History of chronic diarrhea, well-controlled at present. 3. History of frequent falls. 4. Hypertension. 5. History of lower extremity edema. PAST SURGICAL HISTORY: 1. Appendectomy. 2. Cholecystectomy. 3. Hysterectomy. 4. Bilateral knee replacement. 5. Left humerus surgery. 6. Lumbar spine surgery. SOCIAL HISTORY: The patient lives alone. She states she is fully independent at home and continues to drive herself places and able to cook for herself. She mobilizes independently in her apartment, however, for long distances, she uses a walker. Denies any tobacco use, alcohol consumption, or drug use. FAMILY HISTORY: Noncontributory. ALLERGIES: NO KNOWN DRUG ALLERGIES. CURRENT MEDICATIONS: 1. Lisinopril. 2. Furosemide. PHYSICAL EXAMINATION: GENERAL: The patient appears well developed, well nourished, is in no acute distress. VITAL SIGNS: Temperature 98.6, pulse 78, respirations 19, O2 saturation 99% on room air, heart rate 78, blood pressure 136/80. HEENT: Normocephalic, atraumatic. Pupils equal, round, and reactive to light. Sclerae without icterus. Oropharynx is without any posterior pharynx erythema or swelling. However, there was a one purulent pocket in the right posterior pharynx. No bleeding. No other exudative lesions. NECK: Supple. LUNGS: Clear to auscultation bilaterally without wheezes, rales, or rhonchi. CARDIAC: Regular rate and rhythm. ABDOMEN: Soft, nontender, nondistended. Normoactive bowel sounds present. No guarding or rigidity. No renal angle tenderness. EXTREMITIES: Notable for bilateral lower extremity edema, +1 pitting bilaterally. SKIN: Reduced turgor, warm and dry. NEUROLOGIC: Alert and oriented x3. No neuro deficits on exam. INVESTIGATIONS: As mentioned above in HPI. IMPRESSION AND PLAN: Ms. Nguyen is a very pleasant 89-year-old woman who presents to the emergency department with complaints of rhinorrhea and found to be in A-flutter with a heart rate of 153. She converted to normal sinus rhythm spontaneously shortly after having an IV line placed. The patient is being admitted for further workup and management of the following. 1. Atrial flutter. The patient converted to normal sinus rhythm spontaneously. Continue cardiac monitoring. Initial troponin indeterminate. Continue to trend troponins. The patient was asymptomatic with normal blood pressure. Continue to monitor vital signs. Aspirin given in the emergency department. Troponin lightly elevated due to run of A-flutter. Cardiology consult placed. 2. Acute kidney injury. The patient is on a diuretic. No recent bouts of diarrhea. Creatinine is currently 1.59. Continue to monitor renal function and hold nephrotoxic medications. No baseline for comparison. We will repeat renal function with morning labs. Patient has received 1 L of normal saline in the emergency department. We will continue very gentle hydration given history of edema. BNP elevated at 580.9. 3. Elevated lactic acid. Lactic acid was 2.7. Could be multifactorial due to A-flutter and dehydration. We will rule out underlying infection. Urinalysis unremarkable. Chest x-ray also unremarkable. We will obtain respiratory viral panel and swab for strep throat given presence of exudative lesion in the right posterior pharynx. 4. Hypertension. Monitor blood pressure. Currently within normal range. Resume home medications as appropriate once verified. 5. Deep vein thrombosis prophylaxis with heparin. 6. Code status full. Case was discussed with attending, who agrees with plan of care as described above. Job ID: [id number]
[2020-11-06] MEDS: Sodium Chloride 0.9% 500 ML IV SCH (17:30)
[2020-11-06 17:36] VITALS: BMI 25.4
[2020-11-06 17:56] LABS: CKMB 2.5 ng/mL (0-6.6)
[2020-11-06] MEDS: Famotidine 20 MG TAB PO SCH (20:54)
[2020-11-06] MEDS ORDERED: HYDROcodone/Acetaminophen 10/325 mg Tablet PO SCH (23:30)
[2020-11-07 04:12] LABS: #Basophils 0.1 thou/uL (0.0-0.2); #Eosinphils 0.1 thou/uL (0.0-0.7); #Lymphocytes 1.5 thou/uL (1.20-3.40); #Monocytes 0.9 thou/uL (0.11-0.59); #Neutrophils 4.3 thou/uL (1.40-6.50); %Basophils 0.8 % (0.0-1.0); %Eosinophils 1.1 % (0.0-10.0); %Monocytes 12.9 % (0.0-10.0); %Neutrophils 63.2 % (42.0-75.0); Hemoglobin 11.2 g/dL (12.0-16.0); Mean Corpuscular HGB CONC 33.6 g/dL (32.0-36.0); Mean Corpuscular Hemoglobin 34.2 pg (27.0-31.0); Mean Platelet Volume 8.1 fL (7.4-10.4); Platelet Count 181 thou/uL (130-400); RBC Distribution Width 11.7 % (11.5-14.5); Red Blood Cell (RBC) Count 3.27 mill/uL (4.20-5.40); White Blood Cell (WBC) Count 6.8 thou/uL (4.8-10.8)
[2020-11-07 04:31] LABS: Anion Gap 15 mmol/L (10-20); BUN (Urea Nitrogen) 23 mg/dL (9.8-20.1); Calc. Creatinine Clearance 33 mL/min (70-130); Calcium 8.5 mg/dL (7.8-10.44); Carbon Dioxide 24 mmol/L (23-31); Chloride 105 mmol/L (98-107); Glucose 103 mg/dL (83-110); Sodium 140 mmol/L (136-145)
[2020-11-07] MEDS ORDERED: Sodium Chloride 0.9% 1,000 ML IV SCH (06:00)
[2020-11-07] MEDS: Sodium Chloride 0.9% 500 ML IV SCH (06:31)
[2020-11-07] MEDS ORDERED: Lisinopril 5 MG TAB PO SCH (12:15)
[2020-11-07] MEDS ORDERED: Amlodipine 5 MG TAB PO SCH (12:15)
--- NOTE | 2020-11-07 13:25 | CON ---
DATE OF CONSULTATION: 11/07/2020 REASON FOR CONSULTATION: Tachycardia. 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 Rinku Monteiro. HISTORY OF PRESENT ILLNESS: Ms. Nguyen is an 89-year-old woman. She came yesterday complaining of rhinorrhea; however, on examination, she was noted to have a very rapid heart rate and EKG suggests atrial flutter. There is consideration for giving her intravenous diltiazem, but before that could be started, actually converted to sinus rhythm and she has maintained sinus rhythm. Her troponin levels have been indeterminate. The patient did not have chest pain or pressure. PAST MEDICAL HISTORY: She has a history of syncopal episode, seen here and evaluated by Dr. Monteiro in February 2019. No etiology of the syncope was found. Later, she was also diagnosed with vertigo. SOCIAL HISTORY: She lives at home independently. No alcohol or tobacco. REVIEW OF SYSTEMS: CONSTITUTIONAL: No significant weight gain or loss. VISION: No changes. HEARING: No changes. PULMONARY: No cough or wheezing. CARDIAC: No chest pain or pressure. GASTROINTESTINAL: No nausea, vomiting, or diarrhea. SKIN: No rashes. NEUROLOGIC: No unilateral weakness or numbness. PSYCHIATRIC: No unusual depression or anxiety. PHYSICAL EXAMINATION: VITAL SIGNS: Blood pressure high 189/78, she has not received her antihypertensive; pulse 77. LUNGS: Clear. CARDIAC: Normal S1, normal S2. ABDOMEN: Soft, nontender. EXTREMITIES: Warm, dry. No clubbing or cyanosis. There is no edema. PERTINENT LABORATORY DATA: Troponin 0.083 at the peak. EKG does suggest atrial flutter, now in sinus rhythm. CONCLUSION: 1. Atrial arrhythmias to suggest atrial flutter, asymptomatic with indeterminate troponins. 2. History of syncopal episode a couple of years ago. PLAN: 1. Continue to monitor. 2. Can stop IV fluid. 3. Resume BRITTANY inhibitor. 4. We will ask for Electrophysiology consultation. 5. Repeat echocardiogram. Job ID: [id number]
[2020-11-07] MEDS: Acetaminophen 325 MG TAB PO PRN (15:56)
--- NOTE | 2020-11-07 19:07 | PDOC.HOSPP ---
- Subjective Encounter Date: 11/07/20 Encounter Time: 11:00 Subjective: F/u: Sore throat Sore throat - patient states this has resolved. No fevers, chills, neck swelling Atrial flutter - has not had this before. She denied palpitations, dizziness or lightheadedness at the time it was discovered - Objective Vital Signs & Weight: Vital Signs (12 hours) Temp Pulse Resp BP BP Pulse Ox 11/07/20 15:46 98.6 F 71 16 138/82 97 11/07/20 12:18 97.8 F 84 16 178/82 H 97 11/07/20 07:53 97.6 F 77 12 189/78 H 97 Weight Weight 148 lb 9.465 oz I&O: 11/06/20 11/07/20 11/08/20 06:59 06:59 06:59 Intake Total 215 720 Output Total 300 350 Balance -85 370 Result Diagrams: 11/07/20 03:25 11/07/20 03:25 Hospitalist ROS - Review of Systems Constitutional: denies: fever, chills - Medication Medications: Active Medications Generic Name Dose Route Start Last Admin Trade Name Freq PRN Reason Stop Dose Admin Acetaminophen 650 mg 11/06/20 13:11 11/07/20 15:56 Acetaminophen 325 Mg Tab PO 650 mg Q4H PRN Administration Headache/Fever/Mild Pain (1-3) Famotidine 20 mg 11/06/20 21:00 11/06/20 20:54 Famotidine 20 Mg Tab PO 20 mg QPM ROSLYN Administration - Exam General Appearance: NAD, awake alert Eye: PERRL, anicteric sclera ENT: normocephalic atraumatic, no oropharyngeal lesions ENT - other findings: mild pharyngitis, no exudates Heart: RRR, no murmur, no gallops, no rubs Respiratory: CTAB, no wheezes, no rales, no ronchi Gastrointestinal: soft, non-tender, non-distended, normal bowel sounds Extremities: no cyanosis, no clubbing, no edema Hosp A/P - Plan This is an 89 year old female who presented with sore throat, incidentally found to be in atrial flutter and admitted Paroxysmal atrial flutter - appears to be in sinus rhythm now. EP consulted Pharyngitis - resolved. Group A strep cultures negative. Blood culture negative, urine culture negative Elevated troponin - likely from atrial flutter - borderline, ECHO was normal Hypertension - BP in the 180's. Will d/c fluids and resume amlodipine and lisinopril MEAGAN - creatinine improved to 1.2 with IV fluids. Baseline 1.1 , will recheck tomorrow
[2020-11-07] MEDS: HYDROcodone/Acetaminophen 10/325 mg Tablet PO SCH (20:28)
[2020-11-07] MEDS: Enoxaparin Sodium 60 MG/0.6 ML SYRINGE SC SCH (20:29)
[2020-11-07] MEDS: Famotidine 20 MG TAB PO SCH (20:29)
[2020-11-07] MEDS ORDERED: Cepastat Lozenges 1 LOZ PO PRN (20:33)
[2020-11-08] MEDS ORDERED: hydrALAZINE 20 MG/ML VIAL SLOW IVP PRN (01:01)
[2020-11-08 04:39] LABS: RBC Distribution Width 11.6 % (11.5-14.5)
[2020-11-08 04:54] LABS: Anion Gap 14 mmol/L (10-20); BUN (Urea Nitrogen) 18 mg/dL (9.8-20.1); Calc. Creatinine Clearance 36 mL/min (70-130); Carbon Dioxide 25 mmol/L (23-31); Chloride 105 mmol/L (98-107); Glucose 96 mg/dL (83-110); Sodium 140 mmol/L (136-145)
[2020-11-08 05:01] LABS: Hemoglobin 11.1 g/dL (12.0-16.0); Mean Corpuscular HGB CONC 32.2 g/dL (32.0-36.0); Mean Corpuscular Hemoglobin 32.7 pg (27.0-31.0); Mean Platelet Volume 8.5 fL (7.4-10.4); Platelet Count 182 thou/uL (130-400); Red Blood Cell (RBC) Count 3.41 mill/uL (4.20-5.40); White Blood Cell (WBC) Count 4.1 thou/uL (4.8-10.8)
--- NOTE | 2020-11-08 05:33 | CON ---
DATE OF CONSULTATION: 11/07/2020 REASON FOR CONSULTATION: Atrial flutter with RVR. HISTORY OF PRESENT ILLNESS: Ms. Nguyen is a pleasant 89-year-old female, whom we were requested to see as a consult for atrial flutter with rapid ventricular response, found on EKG during the ER evaluation for what was initially complaint of rhinorrhea/sinus congestion. Her initial vital signs showed elevated heart rate, at which point, EKG was done, confirming the diagnosis of atrial flutter. Before any therapeutic measures could be instituted, she converted to sinus rhythm spontaneously. She apparently reported that she was completely asymptomatic of the events, though in speaking to her son, Bert via phone, he reports she has had periodic episodes of tachycardia, shortness of breath, fatigue, dizziness in the past. She has actually had evaluation for syncopal episode in [address] Monteiro/[facility]. At that time, no specific etiology was determined. Her son, Bert, reports she has continued periodic episodes of near syncope/dizziness, typically occur when she is "worked up" or under stress. At present time, she is in sinus rhythm and has maintained such for the duration of the day. She reports currently feeling well with no symptoms. An echocardiogram is pending at the time of this dictation. The remainder of her labs have been reviewed and are essentially benign. She did have very mild troponin bump, thought to be secondary to the RVR. PAST MEDICAL HISTORY: As per above. History of syncope without clear cause. Hypertension. Hyperlipidemia. SOCIAL HISTORY: She currently resides at [facility], but will be transitioning to [facility] per her report. She is otherwise fairly independent. She has a history of falls as per above. REVIEW OF SYSTEMS: GENERAL: No specific complaint at the present time. VISION: No blurred vision, otherwise normal. HEENT: Previous rhinorrhea, somewhat resolved, cough nonproductive. PULMONARY: Cough as above, denies shortness of breath, wheezing, orthopnea. CARDIAC: No chest pain, chest tightness. Denies palpitations or sensations of the tachycardia, denies peripheral edema. GI: Denies N/V/D. SKIN: Complains of occasional bruising, otherwise benign. NEURO/PSYCH: Denies any issues. Again, as mentioned, per son, she has had some dizziness and history of falls. PHYSICAL EXAMINATION: VITAL SIGNS: At present, blood pressure 138/82 (this is the first normal blood pressure she has had since here), oxygen saturation 97% on room air, respiration rate 16, pulse 71, temp 98.6. GENERAL: This is an alert, pleasant female, somewhat confused as to why she remains in the hospital. HEENT: Sclerae nonicteric. Pupils are equal and reactive to light. NECK: Soft and supple without any JVD. LUNGS: Clear generally throughout. She does have a frequent cough that is nonproductive. CARDIAC: S1, S2. No significant murmur heard on my exam. ABDOMEN: Soft and nontender. EXTREMITIES: No significant edema is noted. Occasional bruises. NEUROPSYCH: No gross deficits. She is alert, pleasant, oriented. LABORATORY DATA: Troponin noted to be mildly elevated, appears that peak was 0.083, now trending down. Initial EKG reviewed, possible atrial flutter, versus atypical atrial flutter, versus atrial tachycardia. Most likely typical atrial flutter. Telemetry: Sinus rhythm with narrow complex QRS with rate in the 70s. The remainder of her labs are unremarkable. ASSESSMENT: 1. Likely atrial flutter, though cannot rule out atypical atrial flutter versus atrial tachycardia. She suggests she is asymptomatic, though speaking with her son, paints a different story. 2. Hypertension, most recent vitals showing better control, though has been elevated prior. 3. History of syncope without clear etiology. PLAN: 1. Agree with echo. 2. We will start Lovenox for now. 3. Recommend EP study for further evaluation. At the present time, we will plan for Sunday morning. We will hold Lovenox after Sunday night dose. N.p.o. after Sunday night. 4. Further recommendations pending the EP study. We will continue to monitor on telemetry in the interim. We would not start antiarrhythmics unless significant uncontrolled RVR. Thank you for this consult. We will follow along. Job ID: [id number]
--- NOTE | 2020-11-08 08:19 | PDOC.EP ---
- Subjective Date: 11/08/20 Time: 08:17 Interval History: Tearful this morning and somewhat confused. Talked with son Bert via phone while in patient's room to discuss plans. This seems to have eased her mind. Overnight has maintained SR. Echo reviewed, normal LV function noted. - Review of Systems Constitutional: denies: chills, fever Respiratory: reports: cough. denies: shortness of breath Cardiology: denies: chest pain, edema, heart racing, palpitations Gastrointestinal: denies: abdominal pain, nausea, vomitting Musculoskeletal: reports: arm pain - Objective Allergies/Adverse Reactions: Allergies Allergy/AdvReac Type Severity Reaction Status Date / Time No Known Allergies Allergy Verified 01/23/20 16:57 Current Medications Acetaminophen (Acetaminophen 325 Mg Tab) 650 mg PO Q4H PRN PRN Reason: Headache/Fever/Mild Pain (1-3) Last Admin: 11/07/20 15:56 Dose: 650 mg Documented by: Acetaminophen (Acetaminophen 650 Mg Suppository) 650 mg CA Q4H PRN PRN Reason: Headache/Fever/Mild Pain (1-3) Hydrocodone Bitart/Acetaminophen (Hydrocodone/Acetaminophen 10/325 Mg Tablet) 1 tab PO HS [facility] Last Admin: 11/07/20 20:28 Dose: 1 tab Documented by: Amlodipine Besylate (Amlodipine 5 Mg Tab) 5 mg PO DAILY [facility] Enoxaparin Sodium (Enoxaparin Sodium 60 Mg/0.6 Ml Syringe) 60 mg SC 0900,2100 [facility] Stop: 11/08/20 21:01 Last Admin: 11/07/20 20:29 Dose: 60 mg Documented by: Famotidine (Famotidine 20 Mg Tab) 20 mg PO QPM [facility] Last Admin: 11/07/20 20:29 Dose: 20 mg Documented by: Hydralazine HCl (Hydralazine 20 Mg/Ml Vial) 10 mg SLOW IVP Q4H PRN PRN Reason: SBP > 180 and HR < 70 Last Admin: 11/08/20 01:46 Dose: 10 mg Documented by: Lisinopril (Lisinopril 5 Mg Tab) 5 mg PO DAILY [facility] Sodium Chloride (Flush - Normal Saline 10 Ml Syringe) 10 ml IVF Q12HR PRN PRN Reason: Saline Flush Sodium Chloride (Flush - Normal Saline 10 Ml Syringe) 10 ml IVF PRN PRN PRN Reason: Saline Flush Throat Lozenges (Cepastat Lozenges 1 Monserrat) 1 monserrat PO Q2H PRN PRN Reason: Sore Throat Vital Signs & Weight: Vital Signs Temp Pulse Resp BP Pulse Ox 11/08/20 04:01 97.9 F 59 L 20 168/64 H 97 11/08/20 03:14 70 164/62 H 11/08/20 01:50 69 20 179/77 H 11/08/20 01:46 62 11/08/20 00:50 62 218/108 H 11/07/20 23:00 52 L 158/82 H Weight 148 lb 9.465 oz I/O: I/O 11/07/20 11/08/20 11/09/20 06:59 06:59 06:59 Intake Total 215 920 Output Total 300 350 Balance -85 570 - Physical Exam General: alert & oriented x3, speech clear Neck: supple neck Cardiology: regular rate and rhythm, no murmur Lungs: clear to auscultation, normal breath sounds Neurology: grossly intact Abdomen: unremarkable Extremities: dry - Labs Result Diagrams: 11/08/20 04:09 11/08/20 04:09 - EKG Interpretation Status: report reviewed by me EKG Method: Telemetry EKG shows: Sinus rhythm - Problem (1) Atrial flutter Code(s): I48.92 - UNSPECIFIED ATRIAL FLUTTER - Assessment/Plan Assessment/Plan: Lovenox today then hold. NPO after midnight. Plan EP study tomorrow 11/09 in AM. Discussed case in depth with patient/son (Bert via phone). They are in agreement. Suspect some level of memory loss in patient. Attempted to provide reassurance.
[2020-11-08] MEDS ORDERED: Amlodipine 5 MG TAB PO SCH ×2 (09:00)
[2020-11-08] MEDS: Enoxaparin Sodium 60 MG/0.6 ML SYRINGE SC SCH ×2 (09:08→20:37)
[2020-11-08] MEDS: Amlodipine 10 MG TAB PO SCH (09:08)
[2020-11-08] MEDS: Lisinopril 5 MG TAB PO SCH (09:08)
--- NOTE | 2020-11-08 12:48 | PDOC.HOSPP ---
- Subjective Encounter Date: 11/08/20 Encounter Time: 11:30 Subjective: Follow-up on sore throat patient says her throat feels better. She denies any fevers, neck swelling, or chills. Atrial flutter- states she has never felt palpitations and did not know she had it. She denies dizziness or lightheadedness. - Objective Vital Signs & Weight: Vital Signs (12 hours) Temp Pulse Resp BP BP Pulse Ox 11/08/20 11:27 98.5 F 80 16 169/79 H 98 11/08/20 09:08 98.6 F 87 16 130/67 97 11/08/20 04:01 97.9 F 59 L 20 168/64 H 97 11/08/20 03:14 70 164/62 H 11/08/20 01:50 69 20 179/77 H 11/08/20 01:46 62 11/08/20 00:50 62 218/108 H Weight Weight 148 lb 9.465 oz I&O: 11/07/20 11/08/20 11/09/20 06:59 06:59 06:59 Intake Total 215 920 Output Total 300 350 Balance -85 570 Result Diagrams: 11/08/20 04:09 11/08/20 04:09 Hospitalist ROS - Review of Systems Constitutional: denies: fever, chills, weakness Cardiovascular: denies: chest pain, palpitations, light headedness - Medication Medications: Active Medications Generic Name Dose Route Start Last Admin Trade Name Freq PRN Reason Stop Dose Admin Acetaminophen 650 mg 11/06/20 13:11 11/07/20 15:56 Acetaminophen 325 Mg Tab PO 650 mg Q4H PRN Administration Headache/Fever/Mild Pain (1-3) Hydrocodone Bitart/Acetaminophen 1 tab 11/07/20 21:00 11/07/20 20:28 Hydrocodone/Acetaminophen 10/325 Mg Tablet PO 1 tab HS ROSLYN Administration Amlodipine Besylate 10 mg 11/08/20 09:00 11/08/20 09:08 Amlodipine 10 Mg Tab PO 10 mg DAILY ROSLYN Administration Enoxaparin Sodium 60 mg 11/07/20 21:00 11/08/20 09:08 Enoxaparin Sodium 60 Mg/0.6 Ml Syringe SC 11/08/20 21:01 60 mg 0900,2100 ROSLYN Administration Famotidine 20 mg 11/06/20 21:00 11/07/20 20:29 Famotidine 20 Mg Tab PO 20 mg QPM ROSLYN Administration Hydralazine HCl 10 mg 11/08/20 01:01 11/08/20 01:46 Hydralazine 20 Mg/Ml Vial SLOW IVP 10 mg Q4H PRN Administration SBP > 180 and HR < 70 Lisinopril 5 mg 11/08/20 09:00 11/08/20 09:08 Lisinopril 5 Mg Tab PO 5 mg DAILY ROSLYN Administration Sodium Chloride 10 ml 11/06/20 13:11 11/08/20 09:10 Flush - Normal Saline 10 Ml Syringe IVF 10 ml Q12HR PRN Administration Saline Flush - Exam General Appearance: NAD, awake alert Eye: PERRL, anicteric sclera ENT: normocephalic atraumatic, no oropharyngeal lesions, moist mucosa Neck: supple, no JVD Heart: RRR, no murmur, no gallops, no rubs Respiratory: CTAB, no wheezes, no rales, no ronchi Gastrointestinal: soft, non-tender, non-distended, normal bowel sounds Extremities: no cyanosis, no clubbing, no edema Hosp A/P - Plan This is an 89 year old female who presented with sore throat, incidentally found to be in atrial flutter and admitted Paroxysmal atrial flutter - appears to be in sinus rhythm now. -Per EP: EP study tomorrow morning. Give Lovenox today and then hold. Patient to be NPO after midnight. -Echo on 11/07/20 found estimated EF of 60-65% and normal left ventricular size. Pharyngitis - resolved. Group A strep cultures negative. Blood culture negative, urine culture negative Hypertension - BP improving to the 160's. Will d/c fluids and continue amlodipine and lisinopril Elevated troponin - likely from atrial flutter - borderline, ECHO was normal MEAGAN - creatinine continuing to improve to 1.14 with IV fluids. Baseline 1.1 , will recheck tomorrow I agree with med student assessment and plan. Patient reports no complaints today. She was upset with her son this morning. She has no sore throat or palpitations On exam, she is in sinus rhythm with heart rate in the 80's. Lungs are clear. No edema in legs. She is oriented times three Plan: EP study planned for tomorrow
--- NOTE | 2020-11-08 18:28 | PDOC.CPN ---
- Subjective Date: 11/08/20 Time: 09:00 Interval history: Patient with c/o pain when getting her BP taken. No flutter overnight. plan for ablation tomorrow. - Review of Systems General: denies: fever/chills, weight/appetite/sleep changes, night sweats, fa tigue Respiratory: denies: cough, congestion, shortness of breath, exercise intolerance Cardiovascular: denies: chest pain, palpitation, edema, paroxysmal nocturnal dyspnea, orthopnea Gastrointestinal: denies: nausea, vomiting, diarrhea, constipation, abd pain, GI bleeding Musculoskeletal: reports: pain Neurological: denies: numbness, syncope, seizure, weakness - Objective Allergies/Adverse Reactions: Allergies Allergy/AdvReac Type Severity Reaction Status Date / Time No Known Allergies Allergy Verified 01/23/20 16:57 Visit Medications: Current Medications Acetaminophen (Acetaminophen 325 Mg Tab) 650 mg PO Q4H PRN PRN Reason: Headache/Fever/Mild Pain (1-3) Last Admin: 11/07/20 15:56 Dose: 650 mg Documented by: Acetaminophen (Acetaminophen 650 Mg Suppository) 650 mg [place] Q4H PRN PRN Reason: Headache/Fever/Mild Pain (1-3) Hydrocodone Bitart/Acetaminophen (Hydrocodone/Acetaminophen 10/325 Mg Tablet) 1 tab PO HS [facility] Last Admin: 11/07/20 20:28 Dose: 1 tab Documented by: Amlodipine Besylate (Amlodipine 10 Mg Tab) 10 mg PO DAILY [facility] Last Admin: 11/08/20 09:08 Dose: 10 mg Documented by: Enoxaparin Sodium (Enoxaparin Sodium 60 Mg/0.6 Ml Syringe) 60 mg SC 0900,2100 [facility] Stop: 11/08/20 21:01 Last Admin: 11/08/20 09:08 Dose: 60 mg Documented by: Famotidine (Famotidine 20 Mg Tab) 20 mg PO QPM [facility] Last Admin: 11/07/20 20:29 Dose: 20 mg Documented by: Hydralazine HCl (Hydralazine 20 Mg/Ml Vial) 10 mg SLOW IVP Q4H PRN PRN Reason: SBP > 180 and HR < 70 Last Admin: 11/08/20 01:46 Dose: 10 mg Documented by: Lisinopril (Lisinopril 5 Mg Tab) 5 mg PO DAILY [facility] Last Admin: 11/08/20 09:08 Dose: 5 mg Documented by: Sodium Chloride (Flush - Normal Saline 10 Ml Syringe) 10 ml IVF Q12HR PRN PRN Reason: Saline Flush Last Admin: 11/08/20 09:10 Dose: 10 ml Documented by: Sodium Chloride (Flush - Normal Saline 10 Ml Syringe) 10 ml IVF PRN PRN PRN Reason: Saline Flush Throat Lozenges (Cepastat Lozenges 1 Chepe) 1 chepe PO Q2H PRN PRN Reason: Sore Throat Vital Signs & Weight: Vital Signs Temp Pulse Resp BP Pulse Ox 11/08/20 16:58 98.4 F 86 16 176/78 H 100 11/08/20 11:27 98.5 F 80 16 169/79 H 98 11/08/20 09:08 98.6 F 87 16 130/67 97 Weight 148 lb 9.465 oz - Physical Exam General: alert & oriented x3, other (emotionally upset) HEENT: mucus membranes moist Neck: supple neck Cardiac: regular rate and rhythm Lungs: clear to auscultation Neuro: grossly intact Abdomen: soft, non-tender Extremities: no clubbing, no edema Skin: brusing Musculoskeletal: no pain - Labs Result Diagrams: 11/08/20 04:09 11/08/20 04:09 Troponin/CKMB CK-MB (CK-2) 2.5 ng/mL (0-6.6) 11/06/20 16:47 Troponin I 0.065 ng/mL (< 0.028) H 11/06/20 16:47 - Assessment/Plan Assessment/Plan: 1. AFlutter Plan for ablation tomorrow per EP. Patient is more emotionally upset over multiple other issues. Anxious about procedure. May require xanax or valium today.
[2020-11-08] MEDS: HYDROcodone/Acetaminophen 10/325 mg Tablet PO SCH (20:37)
[2020-11-08] MEDS: Famotidine 20 MG TAB PO SCH (20:38)
[2020-11-09] MEDS ORDERED: Heparin 10,000 UNITS/ 10 ML VIAL ONE (07:58)
[2020-11-09] MEDS ORDERED: Midazolam HCl 2 mg/2 ml Vial ONE (08:01)
[2020-11-09] MEDS ORDERED: Fentanyl 100 MCG/2 ML VIAL ONE (08:01)
[2020-11-09] MEDS ORDERED: Propofol 500 MG/50 ML VIAL ONE ×2 (08:04→08:48)
--- NOTE | 2020-11-09 08:12 | PDOC.EP ---
- Subjective Date: 11/09/20 Time: 08:10 Interval History: No arrhythmias overnight. No complaints. - Objective Allergies/Adverse Reactions: Allergies Allergy/AdvReac Type Severity Reaction Status Date / Time No Known Allergies Allergy Verified 01/23/20 16:57 Current Medications Acetaminophen (Acetaminophen 325 Mg Tab) 650 mg PO Q4H PRN PRN Reason: Headache/Fever/Mild Pain (1-3) Last Admin: 11/07/20 15:56 Dose: 650 mg Documented by: Acetaminophen (Acetaminophen 650 Mg Suppository) 650 mg [place] Q4H PRN PRN Reason: Headache/Fever/Mild Pain (1-3) Hydrocodone Bitart/Acetaminophen (Hydrocodone/Acetaminophen 10/325 Mg Tablet) 1 tab PO HS [facility] Last Admin: 11/08/20 20:37 Dose: 1 tab Documented by: Amlodipine Besylate (Amlodipine 10 Mg Tab) 10 mg PO DAILY [facility] Last Admin: 11/08/20 09:08 Dose: 10 mg Documented by: Famotidine (Famotidine 20 Mg Tab) 20 mg PO QPM [facility] Last Admin: 11/08/20 20:38 Dose: 20 mg Documented by: Hydralazine HCl (Hydralazine 20 Mg/Ml Vial) 10 mg SLOW IVP Q4H PRN PRN Reason: SBP > 180 and HR < 70 Last Admin: 11/08/20 01:46 Dose: 10 mg Documented by: Lisinopril (Lisinopril 5 Mg Tab) 5 mg PO DAILY [facility] Last Admin: 11/08/20 09:08 Dose: 5 mg Documented by: Sodium Chloride (Flush - Normal Saline 10 Ml Syringe) 10 ml IVF Q12HR PRN PRN Reason: Saline Flush Last Admin: 11/08/20 09:10 Dose: 10 ml Documented by: Sodium Chloride (Flush - Normal Saline 10 Ml Syringe) 10 ml IVF PRN PRN PRN Reason: Saline Flush Throat Lozenges (Cepastat Lozenges 1 Chepe) 1 chepe PO Q2H PRN PRN Reason: Sore Throat Vital Signs & Weight: Vital Signs Temp Pulse Resp BP Pulse Ox 11/09/20 07:00 98.6 F 82 16 133/86 97 11/09/20 03:40 98.7 F 63 20 110/70 98 Weight 147 lb 14.883 oz I/O: I/O 11/08/20 11/09/20 11/10/20 06:59 06:59 06:59 Intake Total 920 120 Output Total 350 Balance 570 120 - Labs Result Diagrams: 11/08/20 04:09 11/08/20 04:09 - Assessment/Plan Assessment/Plan: Typical atrial flutter Syncope Plan EP study and ablation today.
[2020-11-09] MEDS ORDERED: Sodium Chloride 0.9% 200 ML IV PRN (10:02)
[2020-11-09] MEDS ORDERED: Ondansetron HCl/PF 4 MG/2 ML Vial IVP PRN (10:18)
[2020-11-09] MEDS ORDERED: PROPOFOL 200 MG/20 ML VIAL ONE (10:40)
--- NOTE | 2020-11-09 10:40 | OP ---
DATE OF PROCEDURE: 11/09/2020 REFERRING EXHAUSTER: Rinku Monteiro. PREOPERATIVE DIAGNOSIS: Typical atrial flutter. POSTOPERATIVE DIAGNOSIS: Typical atrial flutter. PROCEDURES PERFORMED: 1. Cavotricuspid isthmus ablation. 2. 3D mapping of arrhythmia. 3. Left atrial pacing and recording. STEAMER OPERATOR: None. ANESTHESIA: Sedation. SPECIMENS: None. ESTIMATED BLOOD LOSS: 10 mL. COMPLICATIONS: None. DESCRIPTION OF PROCEDURE: Risks, benefits, and alternatives were discussed prior to the procedure including, but not limited to myocardial infarction, stroke, , need for permanent pacemaker, need for emergent surgery, vascular damage, deep vein thrombosis, and allergic reaction. The patient voiced understanding and was agreeable to proceed. The patient was brought electively to the electrophysiology suite. Sedation was performed by Anesthesia. Bilateral femoral areas were prepped and draped in a sterile fashion. Using ultrasound guidance, a 5-Yemeni sheath and a 7-Yemeni sheath were placed in the left femoral vein. A RAMP sheath was placed in the right femoral vein. A decapolar catheter was placed in the coronary sinus. Left atrial pacing and recording were performed. Duodecapolar catheter was placed in the lateral right atrium. A TactiCath D/F irrigated ablation catheter was placed through the RAMP sheath. Ablation settings were 30 cheung at 42 degrees. Cavotricuspid isthmus ablation was performed using 3D mapping. Lateral to medial and medial to lateral block were obtained, which persisted 20 minutes after the last ablation lesion. Conduction across the isthmus was 181 milliseconds. The catheter was moved to the His position. Post radiofrequency ablation intervals: Sinus cycle length equal 1000 msec. IA intervals equal 168 msec. QRS equal 74 msec, QT equal 386 msec, AH equal 99 msec, HV equal 56 msec. AV Wenckebach equal 400 msec. AV node ERP equal 600/300. With single PACs prior to the ablation, nonsustained right atrial flutter which converted to nonsustained left atrial flutter was induced. The arrhythmia spontaneously converted to sinus rhythm after about a minute. Catheters were pulled at the end of the case. Vascade closure devices were used. CONCLUSION: 1. Typical atrial flutter. 2. Successful cavotricuspid isthmus ablation. 3. Nonsustained left atrial flutter which was not seen clinically. RECOMMENDATIONS: 1. Aspirin 81 mg daily for one month. 2. Consider flecainide if left atrial flutter becomes a clinical issue. 3. Okay to discharge later today or tomorrow from an EP standpoint. Job ID: [id number] MTDD
[2020-11-09 11:50] LABS: Hemoglobin 11.8 g/dL (12.0-16.0); Mean Corpuscular HGB CONC 33.3 g/dL (32.0-36.0); Mean Corpuscular Hemoglobin 33.9 pg (27.0-31.0); Mean Platelet Volume 8.4 fL (7.4-10.4); Platelet Count 192 thou/uL (130-400); RBC Distribution Width 11.7 % (11.5-14.5); Red Blood Cell (RBC) Count 3.49 mill/uL (4.20-5.40); White Blood Cell (WBC) Count 5.3 thou/uL (4.8-10.8)
[2020-11-09] MEDS: Acetaminophen 325 MG TAB PO PRN (12:11)
[2020-11-09] MEDS: Amlodipine 10 MG TAB PO SCH (12:11)
[2020-11-09] MEDS: Lisinopril 5 MG TAB PO SCH (12:12)
[2020-11-09 17:24] LABS: Anion Gap 16 mmol/L (10-20); BUN (Urea Nitrogen) 18 mg/dL (9.8-20.1); Calc. Creatinine Clearance 32 mL/min (70-130); Calcium 9.3 mg/dL (7.8-10.44); Carbon Dioxide 25 mmol/L (23-31); Chloride 104 mmol/L (98-107); Glucose 97 mg/dL (83-110); Potassium 4.2 mmol/L (3.5-5.1); Sodium 141 mmol/L (136-145)
--- NOTE | 2020-11-09 18:28 | PDOC.CPN ---
- Subjective Date: 11/09/20 Time: 12:30 - Objective Allergies/Adverse Reactions: Allergies Allergy/AdvReac Type Severity Reaction Status Date / Time No Known Allergies Allergy Verified 01/23/20 16:57 Visit Medications: Current Medications Acetaminophen (Acetaminophen 325 Mg Tab) 650 mg PO Q4H PRN PRN Reason: Headache/Fever/Mild Pain (1-3) Last Admin: 11/09/20 12:11 Dose: 650 mg Documented by: Acetaminophen (Acetaminophen 650 Mg Suppository) 650 mg [place] Q4H PRN PRN Reason: Headache/Fever/Mild Pain (1-3) Hydrocodone Bitart/Acetaminophen (Hydrocodone/Acetaminophen 10/325 Mg Tablet) 1 tab PO [facility] Last Admin: 11/08/20 20:37 Dose: 1 tab Documented by: Amlodipine Besylate (Amlodipine 10 Mg Tab) 10 mg PO DAILY [facility] Last Admin: 11/09/20 12:11 Dose: 10 mg Documented by: Aspirin (Aspirin Chewable 81 Mg Tab) 81 mg PO DAILY [facility] Enoxaparin Sodium (Enoxaparin Sodium 40 Mg/0.4 Ml Syringe) 40 mg SC 0900 [facility] Famotidine (Famotidine 20 Mg Tab) 20 mg PO QPM [facility] Last Admin: 11/08/20 20:38 Dose: 20 mg Documented by: Hydralazine HCl (Hydralazine 20 Mg/Ml Vial) 10 mg SLOW IVP Q4H PRN PRN Reason: SBP > 180 and HR < 70 Last Admin: 11/08/20 01:46 Dose: 10 mg Documented by: Sodium Chloride (Normal Saline 0.9%) 200 mls @ 0 mls/hr IV ONE PRN PRN Reason: SBP < 90 Stop: 11/09/20 23:00 Lisinopril (Lisinopril 5 Mg Tab) 5 mg PO DAILY [facility] Last Admin: 11/09/20 12:12 Dose: 5 mg Documented by: Sodium Chloride (Flush - Normal Saline 10 Ml Syringe) 10 ml IVF Q12HR PRN PRN Reason: Saline Flush Last Admin: 11/08/20 09:10 Dose: 10 ml Documented by: Sodium Chloride (Flush - Normal Saline 10 Ml Syringe) 10 ml IVF PRN PRN PRN Reason: Saline Flush Throat Lozenges (Cepastat Lozenges 1 Chepe) 1 chepe PO Q2H PRN PRN Reason: Sore Throat Vital Signs & Weight: Vital Signs Temp Pulse Resp BP BP Pulse Ox 11/09/20 15:00 98.6 F 70 16 152/72 H 94 L 11/09/20 12:11 70 163/75 H 11/09/20 11:15 98.4 F 68 17 153/82 H 99 11/09/20 07:00 98.6 F 82 16 133/86 97 Weight 147 lb 14.883 oz - Labs Result Diagrams: 11/09/20 11:35 11/09/20 16:57 Troponin/CKMB CK-MB (CK-2) 2.5 ng/mL (0-6.6) 11/06/20 16:47 Troponin I 0.065 ng/mL (< 0.028) H 11/06/20 16:47 - Assessment/Plan Assessment/Plan: 1. AFlutter Patient undergoing CTI at this time. Not seen on floor. If rhythm stable and no complications can go home tomorrow.
--- NOTE | 2020-11-09 19:15 | PDOC.HOSPP ---
- Subjective Encounter Date: 11/09/20 Encounter Time: 11:00 Subjective: F/u: atrial flutter Patient denies chest pain or palpitations. According to the son, the patient has had recurrent syncope for decades. Patient had worn a monitor for 2 weeks and they were never able to catch any arrhythmias, so he is glad that the studies being done. Went for an EP study today. Apparently the patient had a nonsustained left atrial flutter. Right atrial flutter was ablated. Patient reports that she had some left thigh pain post procedure but this is now resolved. Per Dr. Cuenca, patient can go home tonight - Objective Vital Signs & Weight: Vital Signs (12 hours) Temp Pulse Resp BP BP Pulse Ox 11/09/20 15:00 98.6 F 70 16 152/72 H 94 L 11/09/20 12:11 70 163/75 H 11/09/20 11:15 98.4 F 68 17 153/82 H 99 Weight Weight 147 lb 14.883 oz I&O: 11/08/20 11/09/20 11/10/20 06:59 06:59 06:59 Intake Total 920 120 Output Total 350 Balance 570 120 Result Diagrams: 11/09/20 11:35 11/09/20 16:57 Hospitalist ROS - Review of Systems Constitutional: denies: fever, chills - Medication Medications: Active Medications Generic Name Dose Route Start Last Admin Trade Name Freq PRN Reason Stop Dose Admin Acetaminophen 650 mg 11/06/20 13:11 11/09/20 12:11 Acetaminophen 325 Mg Tab PO 650 mg Q4H PRN Administration Headache/Fever/Mild Pain (1-3) Hydrocodone Bitart/Acetaminophen 1 tab 11/07/20 21:00 11/08/20 20:37 Hydrocodone/Acetaminophen 10/325 Mg Tablet PO 1 tab HS [facility] Administration Amlodipine Besylate 10 mg 11/08/20 09:00 11/09/20 12:11 Amlodipine 10 Mg Tab PO 10 mg DAILY [facility] Administration Famotidine 20 mg 11/06/20 21:00 11/08/20 20:38 Famotidine 20 Mg Tab PO 20 mg QPM [facility] Administration Hydralazine HCl 10 mg 11/08/20 01:01 11/08/20 01:46 Hydralazine 20 Mg/Ml Vial SLOW IVP 10 mg Q4H PRN Administration SBP > 180 and HR < 70 Lisinopril 5 mg 11/08/20 09:00 11/09/20 12:12 Lisinopril 5 Mg Tab PO 5 mg DAILY [facility] Administration Sodium Chloride 10 ml 11/06/20 13:11 11/08/20 09:10 Flush - Normal Saline 10 Ml Syringe IVF 10 ml Q12HR PRN Administration Saline Flush - Exam General Appearance: NAD, awake alert Eye: PERRL, anicteric sclera ENT: normocephalic atraumatic, no oropharyngeal lesions Neck: no JVD Heart: RRR, no murmur, no gallops, no rubs Respiratory: CTAB, no wheezes, no rales, no ronchi Gastrointestinal: soft, non-tender, non-distended, normal bowel sounds Extremities: no cyanosis, no clubbing, no edema Extremities - other findings: Groin site looks good Skin: normal turgor, no lesions, no rashes Hosp A/P - Plan This is an 89 year old female who presented with sore throat, incidentally found to be in atrial flutter and admitted Paroxysmal atrial flutter - appears to be in sinus rhythm now. EP study done today and ablation was performed -Echo on 11/07/20 found estimated EF of 60-65% and normal left ventricular size. -Likely DC tomorrow Pharyngitis - resolved. Group A strep cultures negative. Blood culture negative, urine culture negative Hypertension - BP improving to the 160's. Will continue amlodipine and lisinopril Elevated troponin - likely from atrial flutter - borderline, ECHO was normal MEAGAN on CKD - creatinine at baseline at 1.27
[2020-11-09] MEDS: HYDROcodone/Acetaminophen 10/325 mg Tablet PO SCH (20:39)
[2020-11-09] MEDS: Famotidine 20 MG TAB PO SCH (20:39)
[2020-11-09] MEDS ORDERED: Loperamide HCl 2 MG CAP PO PRN (21:06)
[2020-11-09] MEDS: Loperamide HCl 2 MG CAP PO SCH ×2 (21:39→21:41)
[2020-11-10 05:08] LABS: Anion Gap 13 mmol/L (10-20); BUN (Urea Nitrogen) 16 mg/dL (9.8-20.1); Calc. Creatinine Clearance 36 mL/min (70-130); Calcium 8.7 mg/dL (7.8-10.44); Carbon Dioxide 25 mmol/L (23-31); Chloride 107 mmol/L (98-107); Glucose 86 mg/dL (83-110); Potassium 3.9 mmol/L (3.5-5.1); Sodium 141 mmol/L (136-145)
[2020-11-10 07:41] VITALS: BP 131/63; TEMP 98.3
--- NOTE | 2020-11-10 08:13 | PDOC.EP ---
- Subjective Date: 11/10/20 Time: 08:12 Interval History: SR overnight. Groin sites look good. I removed bandages. Spoke to son (Bert) via phone this AM and reviewed results. Patient anxious to go home. - Review of Systems Constitutional: denies: chills, fever Respiratory: denies: cough, dry Cardiology: denies: chest pain, edema, light headedness, palpitations Gastrointestinal: denies: abdominal pain, nausea, vomitting Neurological: denies: headache - Objective Allergies/Adverse Reactions: Allergies Allergy/AdvReac Type Severity Reaction Status Date / Time No Known Allergies Allergy Verified 01/23/20 16:57 Current Medications Acetaminophen (Acetaminophen 325 Mg Tab) 650 mg PO Q4H PRN PRN Reason: Headache/Fever/Mild Pain (1-3) Last Admin: 11/09/20 12:11 Dose: 650 mg Documented by: Acetaminophen (Acetaminophen 650 Mg Suppository) 650 mg [place] Q4H PRN PRN Reason: Headache/Fever/Mild Pain (1-3) Hydrocodone Bitart/Acetaminophen (Hydrocodone/Acetaminophen 10/325 Mg Tablet) 1 tab PO [facility] Last Admin: 11/09/20 20:39 Dose: 1 tab Documented by: Amlodipine Besylate (Amlodipine 10 Mg Tab) 10 mg PO DAILY [facility] Last Admin: 11/09/20 12:11 Dose: 10 mg Documented by: Aspirin (Aspirin Chewable 81 Mg Tab) 81 mg PO DAILY [facility] Enoxaparin Sodium (Enoxaparin Sodium 40 Mg/0.4 Ml Syringe) 40 mg SC 0900 [facility] Famotidine (Famotidine 20 Mg Tab) 20 mg PO QPM [facility] Last Admin: 11/09/20 20:39 Dose: 20 mg Documented by: Hydralazine HCl (Hydralazine 20 Mg/Ml Vial) 10 mg SLOW IVP Q4H PRN PRN Reason: SBP > 180 and HR < 70 Last Admin: 11/08/20 01:46 Dose: 10 mg Documented by: Lisinopril (Lisinopril 5 Mg Tab) 5 mg PO DAILY [facility] Last Admin: 11/09/20 12:12 Dose: 5 mg Documented by: Loperamide HCl (Loperamide Hcl 2 Mg Cap) 2 mg PO DAILY PRN PRN Reason: Diarrhea/Loose Stools Sodium Chloride (Flush - Normal Saline 10 Ml Syringe) 10 ml IVF Q12HR PRN PRN Reason: Saline Flush Last Admin: 11/08/20 09:10 Dose: 10 ml Documented by: Sodium Chloride (Flush - Normal Saline 10 Ml Syringe) 10 ml IVF PRN PRN PRN Reason: Saline Flush Throat Lozenges (Cepastat Lozenges 1 Monserrat) 1 monserrat PO Q2H PRN PRN Reason: Sore Throat Vital Signs & Weight: Vital Signs Temp Pulse Resp BP BP Pulse Ox 11/10/20 07:30 98.3 F 63 17 131/63 97 11/10/20 03:43 97.9 F 60 20 139/65 96 Weight 147 lb 14.883 oz I/O: I/O 11/09/20 11/10/20 11/11/20 06:59 06:59 06:59 Intake Total 120 740 Output Total 1075 Balance 120 -335 - Physical Exam General: alert & oriented x3, speech clear Neck: supple neck Cardiology: regular rate and rhythm, no murmur Lungs: clear to auscultation Neurology: grossly intact Abdomen: unremarkable Skin: groin sites stable. negative: bruising, drainage, hematoma, swelling Musculoskeletal: normal range of motion - Labs Result Diagrams: 11/09/20 11:35 11/10/20 04:28 - EKG Interpretation Status: report reviewed by me EKG Method: Telemetry EKG shows: Sinus rhythm - Problem (1) Atrial flutter Code(s): I48.92 - UNSPECIFIED ATRIAL FLUTTER - Assessment/Plan Assessment/Plan: Ok to d/c from EP standpoint. Our office ([facility]) will call to arrange appointment with me in 2-3 weeks. No lifting more than 10lbs x 5days. She did have left atrial flutter during EP study. If recurrent tachycardia/palpitations/syncope then consider 30 day monitor or even implantabl e loop recorder.
--- NOTE | 2020-11-10 08:17 | PQF ---
CLINICAL DOCUMENTATION CLARIFICATION FORM: Dear Dr. Kat Alamo Date: 11/10/20 Please exercise your independent, professional judgment in responding to the clarification form. Clinical indicators are provided on the bottom of this form for your review. Please check appropriate box(es): AMI TYPE: [ ] Type 1 ID (NSTEMI) [ X] Type 2 ID (T2MI) secondary to: [ ] hypertension [ X ] arrhythmia [ ] renal failure [ ] Demand Ischemia secondary to A flutter [ ] Other: Other diagnosis [ ] Unable to determine In addition, please specify: Present on Admission (POA): [ X ] Yes [ ] No [ ] Unable to determine For continuity of documentation, please document condition throughout progress notes and discharge summary. Thank You. To be completed by CDI/Coding staff for physician review: CLINICAL INDICATORS - SIGNS / SYMPTOMS / LABS / RESULTS AND LOCATION IN EMR Serial Trop 11/06: 0.077, 0.083, 0.065 H&P 11/06: I/P - 1) ...Initial troponin indeterminate. Continue to trend troponins. EP Consult 11/06: LAB DATA: Troponin noted to be mildly elevated, appears that peak was 0.083, now trending down. Attending PN 11/08 - 11/09: Elevated troponin - likely from Aflutter - borderline, ECHO was normal RISKS / RESULTS AND LOCATION IN EMR Hypertension (H&P, /) Paroxysmal Aflutter w/RVR (H&P, 11/06); Elevated troponins (LAB data 11/06); MEAGAN (H&P 11/06) TREATMENTS / RESULTS AND LOCATION IN EMR Serial troponin lab (LAB 11/06); Cardiology consult (MD order 11/06); EPS w/ablation (OP report 11/09) CDS Signature: Amelia Cool, RN, BSN Phone #: [phone] Date: 11/10/20 This is a permanent part of the Medical Record [facility]
[2020-11-10] MEDS: Amlodipine 10 MG TAB PO SCH (08:47)
[2020-11-10] MEDS: Lisinopril 5 MG TAB PO SCH (08:54)
[2020-11-10] MEDS ORDERED: Aspirin Chewable 81 MG TAB PO SCH (09:00)
[2020-11-10] MEDS ORDERED: Enoxaparin Sodium 40 MG/0.4 ML SYRINGE SC SCH (09:00)
--- NOTE | 2020-11-10 09:34 | PDOC.CPN ---
- Subjective Date: 11/10/20 Time: 08:25 Interval history: no overnight events. s/p CTI yesterday. Remains in NSR - Review of Systems General: denies: fever/chills, weight/appetite/sleep changes, night sweats, fatigue Respiratory: denies: cough, congestion, shortness of breath, exercise intolerance Cardiovascular: denies: chest pain, palpitation, edema, paroxysmal nocturnal dyspnea, orthopnea Musculoskeletal: denies: pain, tenderness, stiffness, swelling, arthritis/arthralgias Neurological: denies: numbness, syncope, seizure, weakness - Objective Allergies/Adverse Reactions: Allergies Allergy/AdvReac Type Severity Reaction Status Date / Time No Known Allergies Allergy Verified 01/23/20 16:57 Visit Medications: Current Medications Acetaminophen (Acetaminophen 325 Mg Tab) 650 mg PO Q4H PRN PRN Reason: Headache/Fever/Mild Pain (1-3) Last Admin: 11/09/20 12:11 Dose: 650 mg Documented by: Acetaminophen (Acetaminophen 650 Mg Suppository) 650 mg IN Q4H PRN PRN Reason: Headache/Fever/Mild Pain (1-3) Hydrocodone Bitart/Acetaminophen (Hydrocodone/Acetaminophen 10/325 Mg Tablet) 1 tab PO HS [facility] Last Admin: 11/09/20 20:39 Dose: 1 tab Documented by: Amlodipine Besylate (Amlodipine 10 Mg Tab) 10 mg PO DAILY [facility] Last Admin: 11/10/20 08:47 Dose: 10 mg Documented by: Aspirin (Aspirin Chewable 81 Mg Tab) 81 mg PO DAILY [facility] Last Admin: 11/10/20 08:54 Dose: 81 mg Documented by: Enoxaparin Sodium (Enoxaparin Sodium 40 Mg/0.4 Ml Syringe) 40 mg SC 0900 [facility] Last Admin: 11/10/20 08:54 Dose: 40 mg Documented by: Famotidine (Famotidine 20 Mg Tab) 20 mg PO QPM [facility] Last Admin: 11/09/20 20:39 Dose: 20 mg Documented by: Hydralazine HCl (Hydralazine 20 Mg/Ml Vial) 10 mg SLOW IVP Q4H PRN PRN Reason: SBP > 180 and HR < 70 Last Admin: 11/08/20 01:46 Dose: 10 mg Documented by: Lisinopril (Lisinopril 5 Mg Tab) 5 mg PO DAILY [facility] Last Admin: 11/10/20 08:54 Dose: 5 mg Documented by: Loperamide HCl (Loperamide Hcl 2 Mg Cap) 2 mg PO DAILY PRN PRN Reason: Diarrhea/Loose Stools Sodium Chloride (Flush - Normal Saline 10 Ml Syringe) 10 ml IVF Q12HR PRN PRN Reason: Saline Flush Last Admin: 11/10/20 08:47 Dose: 10 ml Documented by: Sodium Chloride (Flush - Normal Saline 10 Ml Syringe) 10 ml IVF PRN PRN PRN Reason: Saline Flush Throat Lozenges (Cepastat Lozenges 1 Chepe) 1 chepe PO Q2H PRN PRN Reason: Sore Throat Vital Signs & Weight: Vital Signs Temp Pulse Resp BP BP Pulse Ox 11/10/20 07:30 98.3 F 63 17 131/63 97 11/10/20 03:43 97.9 F 60 20 139/65 96 Weight 147 lb 14.883 oz - Physical Exam General: alert & oriented x3, appears well, no apparent distress HEENT: mucus membranes moist Neck: supple neck Cardiac: regular rate and rhythm Lungs: clear to auscultation Neuro: grossly intact Abdomen: soft Extremities: no edema - Labs Result Diagrams: 11/09/20 11:35 11/10/20 04:28 Troponin/CKMB CK-MB (CK-2) 2.5 ng/mL (0-6.6) 11/06/20 16:47 Troponin I 0.065 ng/mL (< 0.028) H 11/06/20 16:47 - Assessment/Plan Assessment/Plan: 1. AFlutter Stable. Ok for discharge from our standpoint. F/U with EP as outpatient.
--- NOTE | 2020-11-10 17:37 | PDOC.DS.DS ---
Provider - Provider Date of Admission: 11/06/20 12:28 Date of Discharge: 11/10/20 Admitting Provider: Slade Mary MD Consultations: Cardiology (Dr. Gilma Arriaza), Other (EP with Dr. Ady Cuenca) Primary Care Physician: Elsie Aldana MD Course - Hospital Course Hospital Course: Discharge Diagnose: 1. Atrial flutter s/p ablation 2. Pharyngitis Brief HPI: This is an 89-year-old female who presented to the hospital with sore throat and rhinorrhea. She decided to come to the ER to get it checked out. Her heart rate was 153 incidentally. The patient had no palpitations. She did report that she wore a Holter monitor for 3 weeks recently and they were unable to find any abnormalities. The patient did have a history of multiple episodes of syncope in the past. She is merit further work-up. Hospital Course: Pharyngitis: Patient had a group a strep throat culture which was negative. Covid test was negative. Chest x-ray was normal. Patient sore throat resolved on the day of admission Atrial flutter: Patient converted to sinus rhythm on admission. EP was consulted. The patient underwent cavotricuspid isthmus ablation on 11/09. She also underwent left atrial pacing and recording due to left atrial flutter noted as well that was nonsustained. She was monitored overnight and remained in sinus rhythm. She will be discharged with aspirin 81 mg daily. She is not a candidate for anticoagulation due to falls in the past. The patient was advised to follow-up with Dr. Cuenca in 2 to 3 weeks. She should consider a 30-day monitor if she has recurrent tachycardia and palpitations or a loop recorder Pertinent Studies: Chest x ray: no significant disease Venogram: normal exam Resuscitation Status: 11/06/20 13:11 Resuscitation Status Routine Co-Sign Provider: Resuscitation Status: FULL: Full Resuscitation - Labs Lab Results: 11/09/20 11:35 11/10/20 04:28 Abnormal Lab Results - Last 48 hrs 11/09/20 11:35: RBC 3.49 L, Hgb 11.8 L, Hct 35.6 L, MCV 102.0 H, MCH 33.9 H 11/09/20 16:57: Creatinine 1.27 H 11/10/20 04:28: Creatinine 1.14 H Microbiology - Entire Visit 11/06/20 09:46 Venous blood - Right Arm Blood Culture - Preliminary NO GROWTH AT 48 HOURS 11/06/20 09:46 Venous blood - Right Arm Blood Culture - Preliminary NO GROWTH AT 48 HOURS 11/06/20 09:48 Urine clean catch Urine Culture - Final 11/06/20 13:36 Throat - Pending Group A Streptococcus Culture - Final 11/06/20 13:14 Throat - Pending Group A Streptococcus Screen ([facility]) - Final - Physical Exam Vitals: Vital Signs (12 hours) Temp Pulse Resp BP Pulse Ox 11/10/20 07:30 98.3 F 63 17 131/63 97 Weight Weight 147 lb 14.883 oz Physical Exam: The patient was seen and examined on the day of discharge. General: patient is alert, awake, oriented times three CVS: RRR, no murmurs, rubs, gallops Lungs: CTAB Abdomen: +BS, soft, nontender, nondistended Extremities: no edema Problem - Time spent with Patient (mins): 30 Plan - Discharge Medications Prescriptions: Aspirin Chewable [Aspirin Chewable Tablet] 81 mg PO DAILY #30 tab Home Medications: Medication Instructions Recorded Confirmed Type Diazepam [Valium] 2.5 mg PO PRN PRN 02/07/19 11/06/20 History Diphenoxylate HCl/Atropine 1 tab PO QID 02/07/19 11/06/20 History [Lomotil] HYDROcodone/Acetaminophen 1 each PO HS 02/07/19 11/06/20 History [Hydrocodone-Acetamin 10-325 mg] Loperamide HCl [Imodium] 2 mg PO DAILY 02/07/19 11/06/20 History Amlodipine [Norvasc] 5 mg PO DAILY #30 tab 02/10/19 11/06/20 Rx Lisinopril [Zestril] 5 mg PO DAILY #30 tab 02/10/19 11/06/20 Rx Meclizine HCl [Antivert] 12.5 mg PO TID PRN 11/06/20 11/06/20 History Budesonide [Ortikos] 6 mg PO DAILY 11/08/20 11/08/20 History Aspirin Chewable [Aspirin Chewable 81 mg PO DAILY #30 tab 11/10/20 Rx Tablet] Allergies: No Known Allergies Allergy (Verified 01/23/20 16:57) - Follow up Plan Referrals: Ady Cuenca MD [Active] - 3-4 Weeks (Please call and amke follow-up appointmnet within 3-4 weeks. ) Elsie Aldana MD [Primary Care Provider] - 7 Days (Please call and make a follow-up appointment within 7 days. ) Gilma Arriaza MD [Active] - 2-3 Weeks (call and schedule follow up appt to see Dr Arriaza as instructed) Disposition: HOME Quality - Care Measures CORE MEASURES:: N/A
== END 2020-11-10 10:30 | disposition home or self-care (01) | DRG 273 ==
LOC: ERS 08:52 → ERHOLD 12:28 → 2NO 17:29
PROVIDERS: ADMIT Internal Medicine; ATTEND Internal Medicine
PROC: 4A023FZ Measurement of Cardiac Rhythm, Percutaneous Approach (ICD-10-PCS; principal; 2020-11-09)
PROC: 02583ZZ Destruction of Conduction Mechanism, Percutaneous Approach (ICD-10-PCS; 2020-11-09)
PROC: 4A0234Z Measurement of Cardiac Electrical Activity, Percutaneous Approach (ICD-10-PCS; 2020-11-09)
PROC: 02K83ZZ Map Conduction Mechanism, Percutaneous Approach (ICD-10-PCS; 2020-11-09)
DX: I48.3 Typical atrial flutter (principal); I21.A1 Myocardial infarction type 2; N17.9 Acute kidney failure, unspecified; Z96.653 Presence of artificial knee joint, bilateral; Z20.822 Contact with and (suspected) exposure to COVID-19; E86.0 Dehydration; J02.9 Acute pharyngitis, unspecified; E78.5 Hyperlipidemia, unspecified; I12.9 Hypertensive chronic kidney disease with stage 1 through stage 4 chronic kidney disease, or unspecified chronic kidney disease; Z90.710 Acquired absence of both cervix and uterus; Z90.49 Acquired absence of other specified parts of digestive tract; Z79.899 Other long term (current) drug therapy; Z98.890 Other specified postprocedural states
CPT/HCPCS: 0240U; 36415; 71045; 76942; 80048; 80053; 81003; 82550; 82553; 82607; 82746; 83605; 83735; 83880; 84145; 84443; 84484; 85025; 85027; 85610; 85730; 86140; 87040; 87081; 87086; 87430; 93005; 93306; 93613; 93621; 93653; 93970; 94760; C1731; C2630; J0360; J1644; J1650; J2250; J2704; J3010; J3475; J3490

== ENCOUNTER 2021-01-05 14:31 | Outpatient (CLI) | payer MEDICARE, OTHER ==
--- NOTE | 2021-01-05 15:20 | RAD ---
LEFT KNEE THREE VIEW: 01/05/21 HISTORY: Pain. COMPARISON: Knee radiograph 04/08/19. FINDINGS: No significant joint effusion. No acute fracture or malalignment. Enthesopathic changes of the superf icial and deep patellar tendon. No perihardware fracture. IMPRESSION: No acute osseous abnormality. POS: [facility]
== END 2021-01-05 14:32 | disposition home or self-care (01) ==
LOC: BICRAD 14:31
PROVIDERS: ATTEND Family Medicine
DX: M25.562 Pain in left knee (principal)

== ENCOUNTER 2022-03-21 12:02 | Outpatient (CLI) | payer MEDICARE, OTHER | END 2022-03-21 12:03 | disposition home or self-care (01) | LOC: TBSIIMAG 12:02 | PROVIDERS: ATTEND Internal Medicine | DX: R42 Dizziness and giddiness (principal); I67.89 Other cerebrovascular disease | CPT/HCPCS: 70551 ==